=== PATIENT | female | born 1950 | race African-American/Black ===

== ENCOUNTER 2017-06-14 02:20 | Emergency (ER) | payer MEDICARE ==
[2017-06-14 02:50] LABS: #Basophils 0.1 thou/uL (0.0-0.2); #Eosinphils 0.3 thou/uL (0.0-0.7); #Monocytes 1.2 thou/uL (0.11-0.59); #Neutrophils 10.3 thou/uL (1.40-6.50); %Basophils 0.8 % (0.0-1.0); %Eosinophils 1.8 % (0.0-10.0); %Lymphocytes 24.9 % (21.0-51.0); %Monocytes 7.7 % (0.0-10.0); Hematocrit 38.9 % (36.0-47.0); Mean Platelet Volume 9.6 fL (7.4-10.4); Red Blood Cell (RBC) Count 4.46 mill/uL (4.20-5.40); White Blood Cell (WBC) Count 15.9 thou/uL (4.8-10.8)
[2017-06-14 02:53] LABS: Bilirubin Negative (Negative); Blood, Urine Negative (Negative); Glucose, Urine (Dipstick) Negative (Negative); Ketone, Urine Negative (Negative); Nitrite Negative (Negative); Protein, Urine (Dipstick) Negative (Neg-Trace); Urobilinogen 0.2 mg/dL (0.2-1.0)
[2017-06-14 03:04] LABS: ALT (SGPT) 16 U/L (8-55); AST (SGOT) 26 U/L (5-34); Alkaline Phosphatase 96 U/L (40-150); Anion Gap 14 mmol/L (10-20); BUN (Urea Nitrogen) 17 mg/dL (9.8-20.1); Bilirubin, Total 0.4 mg/dL (0.2-1.2); Calc. Creatinine Clearance 0 mL/min (70-130); Calcium 9.1 mg/dL (7.8-10.44); Carbon Dioxide 22 mmol/L (23-31); Chloride 103 mmol/L (98-107); Estimated GFR-MDRD 53; Globulin 3.8 g/dL (2.4-3.5); Protein, Total 7.7 g/dL (6.0-8.3)
[2017-06-14] MEDS ORDERED: cefTRIAXone\\ROCEPHIN 1 GM VIAL ONE (03:06)
== END 2017-06-14 04:39 | disposition home or self-care (01) ==
LOC: ERS 02:20
DX: N12 Tubulo-interstitial nephritis, not specified as acute or chronic (principal); E11.9 Type 2 diabetes mellitus without complications; I10 Essential (primary) hypertension; D86.0 Sarcoidosis of lung; F41.9 Anxiety disorder, unspecified; Z79.84 Long term (current) use of oral hypoglycemic drugs; Z79.82 Long term (current) use of aspirin; Z79.899 Other long term (current) drug therapy
CPT/HCPCS: 36415; 80053; 81003; 85025; 87086; 96361; 96365; 96375; J0696; J2270

== ENCOUNTER 2017-10-30 08:44 | Emergency (ER) | payer MEDICARE ==
[2017-10-30 09:37] LABS: #Eosinphils 0.4 thou/uL (0.0-0.7); #Lymphocytes 3.3 thou/uL (1.20-3.40); #Neutrophils 7.9 thou/uL (1.40-6.50); %Basophils 0.3 % (0.0-1.0); %Eosinophils 2.9 % (0.0-10.0); %Lymphocytes 25.8 % (21.0-51.0); %Monocytes 8.1 % (0.0-10.0); %Neutrophils 62.9 % (42.0-75.0); Hemoglobin 12.9 g/dL (12.0-16.0); Mean Corpuscular HGB CONC 32.4 g/dL (32.0-36.0); Mean Corpuscular Hemoglobin 28.2 pg (27.0-31.0); Mean Corpuscular Volume 86.9 fl (81.0-99.0); Mean Platelet Volume 9.3 fL (7.4-10.4); Platelet Count 234 thou/uL (130-400); RBC Distribution Width 14.4 % (11.5-14.5); Red Blood Cell (RBC) Count 4.59 mill/uL (4.20-5.40); White Blood Cell (WBC) Count 12.6 thou/uL (4.8-10.8)
[2017-10-30 09:45] LABS: ALT (SGPT) 15 U/L (8-55); AST (SGOT) 16 U/L (5-34); Alkaline Phosphatase 110 U/L (40-150); Anion Gap 10 mmol/L (10-20); BUN (Urea Nitrogen) 18 mg/dL (9.8-20.1); Bilirubin, Total 0.4 mg/dL (0.2-1.2); CK (CPK) 70 U/L (29-168); Calc. Creatinine Clearance 0 mL/min (70-130); Calcium 9.4 mg/dL (7.8-10.44); Carbon Dioxide 30 mmol/L (23-31); Chloride 100 mmol/L (98-107); Estimated GFR-MDRD 60; Globulin 3.3 g/dL (2.4-3.5); Glucose 155 mg/dL (80-115); INR-International Normal Ratio 0.9; Lipase 28 U/L (8-78); PTT 32.3 SEC (22.9-36.1); Potassium 3.4 mmol/L (3.5-5.1); Protein, Total 7.3 g/dL (6.0-8.3); Prothrombin Time 12.6 SEC (12.0-14.7); Sodium 137 mmol/L (136-145)
[2017-10-30 09:49] LABS: CKMB 0.8 ng/mL (0-6.6); Troponin I 0.015 ng/mL (< 0.028)
[2017-10-30] MEDS ORDERED: diphenhydrAMINE 25 MG CAP ONE (09:55)
[2017-10-30] MEDS ORDERED: Famotidine 20 MG TAB ONE (09:55)
[2017-10-30] MEDS ORDERED: predniSONE 20 MG TAB ONE (09:55)
--- NOTE | 2017-10-30 10:23 | RAD ---
SINGLE VIEW CHEST: Date: 10/30/17 COMPARISON: 10/04/14. HISTORY: Itching for 2 days and chest pain. FINDINGS: Single view of the chest shows a normal sized cardiomediastinal silhouette. There is no evidence of c onsolidation, mass, or pleural effusion. The bones are unremarkable. IMPRESSION: No evidence of acute cardiopulmonary disease. POS: [facility]
--- NOTE | 2017-11-15 15:12 | EKG ---
Test Reason : Blood Pressure : / mmHG Vent. Rate : 082 BPM Atrial Rate : 082 BPM P-R Int : 126 ms QRS Dur : 082 ms QT Int : 380 ms P-R-T Axes : 020 -18 -04 degrees QTc Int : 443 ms Normal sinus rhythm Normal ECG Confirmed by ESTHER BOYER ([id number]), bark press operator SHWETA ORANTES ([id number]) on 11/15/2017 3:12:15 PM Referred By: ROSALIND Confirmed By:ESTHER BOYER
== END 2017-10-30 11:43 | disposition home or self-care (01) ==
LOC: ERS 08:44
DX: R07.9 Chest pain, unspecified (principal); L29.9 Pruritus, unspecified; D86.9 Sarcoidosis, unspecified; E11.9 Type 2 diabetes mellitus without complications; I10 Essential (primary) hypertension; F41.9 Anxiety disorder, unspecified; Z79.82 Long term (current) use of aspirin; Z87.442 Personal history of urinary calculi; Z79.84 Long term (current) use of oral hypoglycemic drugs; Z79.899 Other long term (current) drug therapy
CPT/HCPCS: 36415; 71045; 80053; 82553; 83690; 84484; 85025; 85610; 85730; 93005; 94760; J7506

== ENCOUNTER 2018-03-02 04:32 | Observation (INO) | payer MEDICARE ==
[2018-03-02 05:05] LABS: #Eosinphils 0.3 thou/uL (0.0-0.7); #Lymphocytes 3.7 thou/uL (1.20-3.40); #Neutrophils 7.9 thou/uL (1.40-6.50); %Basophils 0.2 % (0.0-1.0); %Eosinophils 2.1 % (0.0-10.0); %Lymphocytes 28.6 % (21.0-51.0); %Monocytes 7.8 % (0.0-10.0); %Neutrophils 61.3 % (42.0-75.0); Hemoglobin 12.7 g/dL (12.0-16.0); Mean Corpuscular HGB CONC 33.1 g/dL (32.0-36.0); Mean Corpuscular Hemoglobin 27.5 pg (27.0-31.0); Mean Platelet Volume 9.5 fL (7.4-10.4); Platelet Count 229 thou/uL (130-400); RBC Distribution Width 14.3 % (11.5-14.5); White Blood Cell (WBC) Count 12.9 thou/uL (4.8-10.8)
[2018-03-02 05:30] LABS: ALT (SGPT) 9 U/L (8-55); AST (SGOT) 17 U/L (5-34); Albumin 4.1 g/dL (3.4-4.8); Alkaline Phosphatase 131 U/L (40-150); Anion Gap 15 mmol/L (10-20); BUN (Urea Nitrogen) 29 mg/dL (9.8-20.1); Bilirubin, Total 0.3 mg/dL (0.2-1.2); CK (CPK) 68 U/L (29-168); Calc. Creatinine Clearance 0 mL/min (70-130); Calcium 9.2 mg/dL (7.8-10.44); Carbon Dioxide 25 mmol/L (23-31); Chloride 100 mmol/L (98-107); Estimated GFR-MDRD 39; Globulin 3.6 g/dL (2.4-3.5); Glucose 174 mg/dL (80-115); Lipase 48 U/L (8-78); Potassium 3.5 mmol/L (3.5-5.1); Protein, Total 7.7 g/dL (6.0-8.3); Sodium 136 mmol/L (136-145)
[2018-03-02 05:34] LABS: CKMB 0.7 ng/mL (0-6.6); Troponin I Less than 0.010 ng/mL (< 0.028)
[2018-03-02] MEDS ORDERED: Nitroglycerin 2% Ointment 1 INCH/1 GM Packet ONE (06:03)
[2018-03-02] MEDS ORDERED: HumaLOG 300 UNITS/3 ML VIAL SC PRN ×2 (07:15)
[2018-03-02] MEDS ORDERED: Dextrose 50% Abboject 50 ML SYRINGE SLOW IVP PRN (07:15)
[2018-03-02] MEDS ORDERED: Dextrose 5% in Water 1,000 ML IV PRN (07:15)
[2018-03-02] MEDS ORDERED: Senokot 8.6 MG TAB PO PRN ×2 (07:16)
[2018-03-02] MEDS ORDERED: hydrALAZINE 20 MG/ML VIAL SLOW IVP PRN (07:16)
[2018-03-02] MEDS ORDERED: Nitroglycerin 0.4 MG TAB (25 Tab Bottle) SL PRN (07:16)
[2018-03-02] MEDS ORDERED: Benzonatate 100 MG CAP PO PRN (07:16)
[2018-03-02] MEDS ORDERED: Mag-Al 1200 mg/1200 mg/30 ML UDCUP PO PRN (07:16)
[2018-03-02] MEDS ORDERED: Loratadine 10 MG TAB PO PRN (07:16)
[2018-03-02] MEDS ORDERED: Ondansetron HCl/PF 4 MG/2 ML Vial IVP PRN (07:16)
[2018-03-02] MEDS ORDERED: Calcium Carbonate 500 MG ChewTAB PO PRN (07:16)
[2018-03-02] MEDS ORDERED: Milk Of Magnesia 30 ML UDCUP PO PRN (07:16)
[2018-03-02] MEDS ORDERED: Acetaminophen 325 MG TAB PO PRN (07:16)
[2018-03-02] MEDS ORDERED: Diabetic Tussin 200 MG/10 ML UDCUP PO PRN (07:16)
[2018-03-02] MEDS ORDERED: traMADol HCl 50 MG TAB PO PRN (07:16)
[2018-03-02] MEDS ORDERED: Bisacodyl 5 MG TAB PO PRN ×2 (07:16)
[2018-03-02] MEDS ORDERED: cloNIDine 0.1 MG TAB PO PRN (07:16)
[2018-03-02 08:12] LABS: Cardiac Risk 2.6 (Less than 4.5)
--- NOTE | 2018-03-02 08:13 | RAD ---
SINGLE VIEW OF THE CHEST: COMPARISON: 10/30/17. HISTORY: Chest pain. FINDINGS: Single view of the chest shows a normal sized cardiomediastinal silhouette. There is no evidence of c onsolidation, mass, or pleural effusion. The bones are unremarkable. IMPRESSION: No evidence of acute cardiopulmonary disease. POS: [facility]
[2018-03-02 08:15] VITALS: BMI 34.0
[2018-03-02 08:15] LABS: Troponin I Less than 0.010 ng/mL (< 0.028)
[2018-03-02 08:16] VITALS: TEMP 98.3
[2018-03-02] MEDS ORDERED: Enoxaparin Sodium 40 MG/0.4 ML SYRINGE SC SCH (09:00)
[2018-03-02] MEDS ORDERED: Aspirin 325 mg Enteric Coated Tablet PO SCH (09:00)
[2018-03-02 12:10] VITALS: BP 114/56
[2018-03-02] MEDS ORDERED: Regadenoson 0.4 MG/5 ML SYRINGE ONE ×2 (12:12→13:26)
--- NOTE | 2018-03-02 12:15 | NM ---
NUCLEAR MEDICINE CARDIAC PERFUSION EXAMINATION WITH EJECTION FRACTION: COMPARISON: 04/17/14. HISTORY: A 67-year-old female with chest pain. History of cardiac catheterization. Hypertension and diabetes and family history of coronary artery disease. TECHNIQUE: A stress-only nuclear medicine cardiac perfusion examination was performed. using 30.5 mCi of Techne tium 99m sestamibi and LexiScan. FINDINGS: Tomographic images showed no perfusion defects with stress. Gated images show normal wall motion wit h an ejection fraction of greater than 70%. EDV is 37 mL. LHR is 0.3. IMPRESSION: No perfusion defect seen with stress. POS: [facility]
[2018-03-02 12:32] LABS: Bilirubin Negative (Negative); Blood, Urine Negative (Negative); Clarity CLEAR (Clear); Glucose, Urine (Dipstick) Negative (Negative); Leukocyte Negative (Negative); Nitrite Negative (Negative); Protein, Urine (Dipstick) Negative (Neg-Trace); Specific Gravity, Urine 1.009 (1.002-1.036); Urobilinogen 0.2 mg/dL (0.2-1.0); pH, Urine 5.5 (5.0-9.0)
[2018-03-02 12:35] LABS: Bacteria/HPF None Seen HPF (None Seen); Hyaline Casts/LPF 0-3 HYALINE CAST LPF (0-3 Hyaline); RBC/HPF 0-3 HPF (0-3); Squamous Epithelial 0-3 HPF (0-3); WBC/HPF 0-3 HPF (0-3)
[2018-03-02] MEDS ORDERED: hydrOXYzine 25 MG TAB PO PRN (12:49)
[2018-03-02] MEDS ORDERED: Cyclobenzaprine 10 MG TAB PO PRN (12:49)
[2018-03-02] MEDS ORDERED: Dicyclomine 20 MG TAB PO PRN (12:49)
[2018-03-02] MEDS ORDERED: PROVENTIL INHALER 6.7 G (200 INHALATIONS) INH PRN (13:00)
[2018-03-02] MEDS ORDERED: DULoxetine 60 MG CAP PO SCH ×2 (13:30)
[2018-03-02 13:40] LABS: Troponin I Less than 0.010 ng/mL (< 0.028)
[2018-03-02] MEDS ORDERED: predniSONE 20 MG TAB PO SCH (14:15)
--- NOTE | 2018-03-02 15:11 | SS ---
DATE OF ADMISSION: 03/02/2018 DATE OF DISCHARGE: 03/02/2018 CONDITION AT THE TIME OF DISCHARGE: Stable and improved. ADMISSION AND DISCHARGE DIAGNOSIS: As follows chest pain, noncardiac, likely related to sarcoidosis. SECONDARY DISCHARGE DIAGNOSES: 1. History of sarcoidosis. 2. Diabetes mellitus type 2. 3. Hypertension. 4. Dyslipidemia. 5. Vitamin B12 deficiency. 6. Gastroesophageal reflux disease. 7. Diabetic neuropathy. 8. Hemorrhoid. 9. Anxiety. 10. Depression. 11. Seasonal allergies. 12. Morbid obesity with a BMI of 34. PRIMARY CARE PHYSICIAN: Dr. Adrienne Perez at [facility]. CHIEF COMPLAINT UPON PRESENTATION: Chest pain. HISTORY OF PRESENT ILLNESS: Ms. Galarza is a very pleasant 67-year-old Afro[place] female with pas t medical history of sarcoidosis, who presented to the ER with the complaints of chest pain. The pat shirley has been in and out of the hospital multiple times in the past with the similar complaints. The last time she was here was in 2014 with similar complaints. She has had a normal stress test in and an echocardiogram done as well in 08/2014, which shows EF of 50% to 55%. She presented to the emergency room last night with complaints of chest pain for the 5 days which was intermittent and radiating to her back. She reported that she is not taking her prednisone for the last 3 months. She reported that this is the pain that she always has and thinks that this is her sa rcoidosis. She had some shortness of breath with ambulation, nausea and some cough. She denies any other recent illnesses. Upon presentation to the ER, she was hemodynamically stable with a blood pre ssure of 125/79, saturating 97% on room air. Her initial evaluation included a 12-lead EKG, which di d not have any EKG changes to suggest ACS. The chest x-ray was clear. Cardiac enzymes were obtained and were unremarkable. She was admitted under observation status on telemetry unit to rule out acut e coronary syndrome. PAST MEDICAL HISTORY: 1. Sarcoidosis. 2. Anxiety and depression. 3. Diabetes mellitus. 4. Hypertension. 5. Dyslipidemia. 6. Vitamin B12 deficiency. 7. Gastroesophageal reflux disease. 8. Diabetic neuropathy. 9. Hemorrhoids. PAST SURGICAL HISTORY: 1. Multiple colonoscopies. 2. Colon resection due to obstruction in 1969. 3. Breast reduction. 4. Hysterectomy. 5. Tonsillectomy. 6. Right ankle surgery. 7. Cholecystectomy. SOCIAL HISTORY: She lives at home with family. No history of drug, tobacco or alcohol abuse. FAMILY HISTORY: Significant for diabetes and hypertension and multiple other members also have diabe robert. ALLERGIES: CIPROFLOXACIN, CODEINE, NITROFURANTOIN, BACTRIM. HOME MEDICATIONS: As follows, hydrochlorothiazide 12.5 mg daily, [place] as needed, ProAir as needed, Atarax 25 mg p.o. daily p.r.n., Bentyl 20 mg p.o. t.i.d. p.r.n., Cymbalta 60 mg daily, Flexeril 10 mg t.i.d. p.r.n., colestipol 1 gram p.o. b.i.d., lisinopril 5 mg daily, Januvia 25 mg daily. REVIEW OF SYSTEMS: A 12-point review of systems is done. It is negative except for those mentioned in the history and physical. Constitutional: Weight loss or gain, ability to conduct usual activities. Skin: Rash, itching. Eyes: Double vision, pain. ENT/Mouth: Nose bleeding, neck stiffness, pain, tenderness. Cardiovascular: Palpitations, dyspnea on exertion, orthopnea. Respiratory: Shortness of breath, wheezing, cough, hemoptysis, fever or night sweats. Gastrointestinal: Poor appetite, abdominal pain, heartburn, nausea, vomiting, constipation, or diarrhea. Genitourinary: Urgency, frequency, dysuria, nocturia. Musculoskeletal: Pain, swelling. Neurologic/Psychiatric: Anxiety, depression. Allergy/Immunologic: Skin rash, bleeding tendency. LABORATORY DATA: Upon presentation, CBC shows WBCs of 12.9 without any left shift, otherwise unremar kable. D-dimer less than 0.27. Serum chemistries show creatinine of 1.58 and low sugar of 174, BUN 29. Serial cardiac enzymes were trended and were less than 0.010 x3. CK-MB normal at 0.7. Triglyce rides elevated mildly at 214. Urinalysis unremarkable. Chest x-ray by my review has no evidence to suggest pleural effusion, edema or infiltrate. Twelve lead EKG by my review shows normal sinus rhyth m without any acute ST or T-wave changes. Heart rate 91 per minute. PHYSICAL EXAMINATION: The patient is seen and examined. VITAL SIGNS: Most recent vital signs, temperature 98.3, heart rate 90, respirations 20, saturating 9 7% on room air, blood pressure 114/56. GENERAL: No acute distress, awake, alert, oriented x3. She does appear somewhat uncomfortable becau se of constant pain. HEENT: Mucous membrane is moist and pink. No oropharyngeal exudate or erythema. Head is normocepha lic, atraumatic. Pupils equal, reactive to light and accommodation. Extraocular movement intact. NECK: Supple without any lymphadenopathy, JVD or bruit. LUNGS: Clear to auscultation without any wheezing, rales or rhonchi. CARDIOVASCULAR: Rate and rhythm is regular without any murmur, rubs or gallops. She is tender to pa lpation anteriorly on the entire chest. ABDOMEN: Obese, soft, nontender, nondistended with positive bowel sounds. EXTREMITIES: Free of any cyanosis, clubbing, or edema. NEUROLOGIC: Nonfocal. SKIN: Free of any rashes or bruises. I feel warm and dry to touch. PSYCHIATRIC: Normal affect. IMPRESSION AND PLAN: Chest pain. The patient underwent a nuclear medicine stress test today. This was unremarkable. No fixed or reversible defects seen. EF estimated upwards of 70%. The most likel y her pain is secondary to her sarcoidosis. I had discussion with the patient and she requested that she be treated with steroids, which I think is reasonable. She was given one dose of steroids in [facility] and will be discharged on a Medrol dose tapering back. She will be referred to Pulmonary Medicine as she has not been seen by pega developer in multiple years. At this time, her chest pain i s noncardiac and rather just a chronic pain which is exacerbated for now. Otherwise, she remains hem odynamically stable and will resume her home medications on discharge. She is instructed to follow up with her primary care physician in 1-2 weeks as well. She is also started on Protonix because she gave me the history that she recently had an EGD done and was told that she has some inflammation in her stomach. Her symptoms might also be being contribute d to acid reflux. She was given Protonix 40 mg daily for 1 month trial, and she will follow up with her primary care physician afterwards. At this time, the patient is stable and will be discharged to home.
[2018-03-03] MEDS ORDERED: DULoxetine 60 MG CAP PO SCH (09:00)
[2018-03-03] MEDS ORDERED: Hydrochlorothiazide 25 MG TAB PO SCH (09:00)
[2018-03-03] MEDS ORDERED: Alogliptin 6.25 MG TAB PO SCH (09:00)
[2018-03-03] MEDS ORDERED: Lisinopril 5 MG TAB PO SCH (09:00)
== END 2018-03-02 16:03 | disposition home or self-care (01) ==
LOC: ERS 04:32 → 2SW 07:16
PROVIDERS: ADMIT Hospitalist; ATTEND Hospitalist
DX: R07.89 Other chest pain (principal); E11.40 Type 2 diabetes mellitus with diabetic neuropathy, unspecified; E78.5 Hyperlipidemia, unspecified; K21.9 Gastro-esophageal reflux disease without esophagitis; E53.8 Deficiency of other specified B group vitamins; K64.9 Unspecified hemorrhoids; F41.8 Other specified anxiety disorders; J30.2 Other seasonal allergic rhinitis; I10 Essential (primary) hypertension; E66.01 Morbid (severe) obesity due to excess calories; Z68.34 Body mass index [BMI] 34.0-34.9, adult; Z88.1 Allergy status to other antibiotic agents; Z88.5 Allergy status to narcotic agent; Z88.8 Allergy status to other drugs, medicaments and biological substances
CPT/HCPCS: 71045; 78452; 80053; 80061; 81001; 82550; 82553; 82962; 83690; 83880; 84484 ×2; 85025; 85379; 93005; 93017; 96360; 96372; 99285; A9500; G0378; 36415; 36416; J1650; J2785; J7506

== ENCOUNTER 2018-06-08 06:52 | Emergency (ER) | payer MEDICARE ==
[2018-06-08] MEDS ORDERED: Ibuprofen 800 MG TAB ONE (07:19)
[2018-06-08 08:01] LABS: Bilirubin Negative (Negative); Blood, Urine Negative (Negative); Clarity CLEAR (Clear); Glucose, Urine (Dipstick) Negative (Negative); Leukocyte Negative (Negative); Nitrite Negative (Negative); Protein, Urine (Dipstick) Negative (Neg-Trace); Specific Gravity, Urine 1.008 (1.002-1.036); Urobilinogen 0.2 mg/dL (0.2-1.0); pH, Urine 5.5 (5.0-9.0)
== END 2018-06-08 08:55 | disposition home or self-care (01) ==
LOC: ERS 06:52
DX: S39.012A Strain of muscle, fascia and tendon of lower back, initial encounter (principal); E11.9 Type 2 diabetes mellitus without complications; I10 Essential (primary) hypertension; F41.9 Anxiety disorder, unspecified; X58.XXXA Exposure to other specified factors, initial encounter
CPT/HCPCS: 81003; 99283

== ENCOUNTER 2019-03-23 04:20 | Emergency (ER) | payer MEDICARE ==
[2019-03-23] MEDS ORDERED: Ondansetron ODT 4 MG TAB ONE (04:56)
[2019-03-23] MEDS ORDERED: Ketorolac Tromethamine 30 MG/ML VIAL ONE (04:56)
[2019-03-23 05:20] LABS: #Basophils 0.1 thou/uL (0.0-0.2); #Eosinphils 0.7 thou/uL (0.0-0.7); #Lymphocytes 4.5 thou/uL (1.20-3.40); #Monocytes 1.4 thou/uL (0.11-0.59); #Neutrophils 12.5 thou/uL (1.40-6.50); %Basophils 0.6 % (0.0-1.0); %Eosinophils 3.4 % (0.0-10.0); %Lymphocytes 23.7 % (21.0-51.0); %Monocytes 7.1 % (0.0-10.0); %Neutrophils 65.2 % (42.0-75.0); Hemoglobin 11.8 g/dL (12.0-16.0); Mean Corpuscular HGB CONC 32.9 g/dL (32.0-36.0); Mean Corpuscular Hemoglobin 29.7 pg (27.0-31.0); Mean Corpuscular Volume 90.1 fL (78.0-98.0); Platelet Count 222 thou/uL (130-400); RBC Distribution Width 14.1 % (11.5-14.5); Red Blood Cell (RBC) Count 3.99 mill/uL (4.20-5.40); White Blood Cell (WBC) Count 19.1 thou/uL (4.8-10.8)
[2019-03-23 05:36] LABS: Bacteria/HPF None Seen HPF (None Seen); Bilirubin Negative (Negative); Blood, Urine Negative (Negative); Clarity Clear (Clear); Glucose, Urine (Dipstick) Normal (Negative); Leukocyte 75 Leu/uL (Negative); Nitrite Negative (Negative); Protein, Urine (Dipstick) Negative (Neg-Trace); RBC/HPF 0-3 HPF (0-3); Urobilinogen Normal mg/dL (Less than 2)
[2019-03-23 05:43] LABS: ALT (SGPT) 18 U/L (8-55); AST (SGOT) 13 U/L (5-34); Albumin 3.6 g/dL (3.4-4.8); Alkaline Phosphatase 112 U/L (40-150); Anion Gap 12 mmol/L (10-20); BUN (Urea Nitrogen) 26 mg/dL (9.8-20.1); Bilirubin, Total 0.3 mg/dL (0.2-1.2); Calc. Creatinine Clearance 0 mL/min (70-130); Calcium 9.1 mg/dL (7.8-10.44); Carbon Dioxide 24 mmol/L (23-31); Chloride 107 mmol/L (98-107); Estimated GFR-MDRD 64; Globulin 2.7 g/dL (2.4-3.5); Glucose 105 mg/dL (80-115); Potassium 3.5 mmol/L (3.5-5.1); Protein, Total 6.3 g/dL (6.0-8.3); Sodium 139 mmol/L (136-145)
[2019-03-23] MEDS ORDERED: cefTRIAXone\\ROCEPHIN 2 GM VIAL ONE (07:11)
--- NOTE | 2019-03-23 11:15 | CT ---
CT ABDOMEN AND PELVIS WITHOUT IV CONTRAST: Date: 03/23/19 INDICATION: History of left-sided flank pain. COMPARISON: Prior exam dated 11/30/16. FINDINGS: No renal or ureteral calculus is evident. No hydronephrosis is evident. There is a lobulated contour to the kidneys bilaterally which is stable. There is mild bibasilar atelectasis. Unopacified liver, pancreas, adrenal glands, and spleen appear within normal limits. No free fluid or enlarged lymph nodes are evident. There is a normal appendix in the right lower quadrant. No free fluid or enlarged lymph nodes in the abdomen or pelvis. Reproductive structures are absent. There is scattered degenerative and osteoarthritic change. IMPRESSION: No renal or ureteral calculus. POS: [facility]
== END 2019-03-23 07:53 | disposition home or self-care (01) ==
LOC: ERS 04:20
DX: N12 Tubulo-interstitial nephritis, not specified as acute or chronic (principal); E11.9 Type 2 diabetes mellitus without complications; I10 Essential (primary) hypertension; D86.9 Sarcoidosis, unspecified; F41.9 Anxiety disorder, unspecified
CPT/HCPCS: 74176; 80053; 81003; 81015; 85025; J0696; J1885; Q0162

== ENCOUNTER 2019-03-25 08:11 | Inpatient (IN) | payer MEDICARE ==
[2019-03-25 09:19] LABS: Bacteria/HPF None Seen HPF (None Seen); Bilirubin Negative (Negative); Blood, Urine Negative (Negative); Clarity Clear (Clear); Glucose, Urine (Dipstick) Normal (Negative); Leukocyte 75 Leu/uL (Negative); Nitrite Negative (Negative); Protein, Urine (Dipstick) 10 mg/dL (Neg-Trace); RBC/HPF 0-3 HPF (0-3); Urobilinogen Normal mg/dL (Less than 2); WBC/HPF 0-3 HPF (0-3)
[2019-03-25] MEDS ORDERED: Sodium Chloride 0.9% 100 ML ONE (09:31)
[2019-03-25] MEDS ORDERED: Cefepime 2 GM VIAL ONE (09:31)
[2019-03-25] MEDS ORDERED: MEROPENEM 1 GM/50 ML 1 GM in Premix Bag 1 BAG IVPB SCH (09:45)
[2019-03-25 10:00] LABS: Hemoglobin 12.7 g/dL (12.0-16.0); Mean Corpuscular HGB CONC 33.1 g/dL (32.0-36.0); Mean Corpuscular Hemoglobin 28.9 pg (27.0-31.0); Mean Corpuscular Volume 87.4 fL (78.0-98.0); Mean Platelet Volume 9.6 fL (7.4-10.4); Platelet Count 221 thou/uL (130-400); RBC Distribution Width 15.1 % (11.5-14.5); White Blood Cell (WBC) Count 20.9 thou/uL (4.8-10.8)
[2019-03-25 10:02] LABS: Band 7 % (5-11); Eosinophils 1 % (0-10); Lymphocytes 19 % (21-51); MDiff Complete? YES; Metamyelocyte 1 % (0-0); Neutrophil 72 % (42-75); RBC Morphology Normal
--- NOTE | 2019-03-25 10:43 | RAD ---
CHEST 1 VIEW: INDICATION: Fever. COMPARISON: Prior exam dated 03/02/2018. FINDINGS: There is mild cardiomegaly. Lungs are clear. No acute osseous abnormality is evident. IMPRESSION: No acute cardiopulmonary abnormality. Stable mild cardiomegaly. POS: [facility]
[2019-03-25 11:00] LABS: Albumin 3.6 g/dL (3.4-4.8)
[2019-03-25 11:01] LABS: Chloride 99 mmol/L (98-107); Potassium 3.2 mmol/L (3.5-5.1); Sodium 137 mmol/L (136-145)
[2019-03-25 11:02] LABS: Calcium 9.9 mg/dL (7.8-10.44); Globulin 2.9 g/dL (2.4-3.5); Glucose 120 mg/dL (80-115); Protein, Total 6.5 g/dL (6.0-8.3)
[2019-03-25 11:03] LABS: Carbon Dioxide 27 mmol/L (23-31)
[2019-03-25 11:04] LABS: Anion Gap 14 mmol/L (10-20); Bilirubin, Total 0.6 mg/dL (0.2-1.2)
[2019-03-25 11:05] LABS: Alkaline Phosphatase 114 U/L (40-150)
[2019-03-25 11:06] LABS: BUN (Urea Nitrogen) 20 mg/dL (9.8-20.1); Calc. Creatinine Clearance 0 mL/min (70-130); Estimated GFR-MDRD 51
[2019-03-25 11:07] LABS: AST (SGOT) 21 U/L (5-34)
[2019-03-25 11:08] LABS: ALT (SGPT) 27 U/L (8-55); CK (CPK) 14 U/L (29-168); Lipase 39 U/L (8-78)
[2019-03-25] MEDS ORDERED: Dextrose 5% in Water 1,000 ML IV PRN (12:27)
[2019-03-25] MEDS ORDERED: Dextrose 50% Abboject 50 ML SYRINGE SLOW IVP PRN (12:27)
[2019-03-25] MEDS ORDERED: Calcium Carbonate 500 MG ChewTAB PO PRN (12:28)
[2019-03-25] MEDS ORDERED: Ondansetron PF 4 MG/2 ML Vial IVP PRN (12:28)
[2019-03-25] MEDS ORDERED: HYDROcodone/Acetaminophen 5/325 mg Tablet PO PRN (12:28)
[2019-03-25] MEDS ORDERED: Ondansetron ODT 4 MG TAB PO PRN (12:28)
[2019-03-25] MEDS ORDERED: Acetaminophen 325 MG TAB PO PRN (12:28)
[2019-03-25] MEDS ORDERED: Pantoprazole 40 MG VIAL IVP SCH (12:30)
[2019-03-25] MEDS ORDERED: hydrALAZINE 20 MG/ML VIAL SLOW IVP PRN (12:30)
[2019-03-25 12:36] LABS: CRP (Inflammatory) 15.52 mg/dL (= or < 0.5); Magnesium 1.3 mg/dL (1.6-2.6)
[2019-03-25] MEDS ORDERED: Magnesium Sulfate 4 GM in Sodium Chloride 0.9% 250 ML 250 ML IVPB SCH (12:45)
[2019-03-25] MEDS ORDERED: predniSONE 20 MG TAB PO SCH (12:45)
[2019-03-25 12:53] VITALS: BMI 37.0
--- NOTE | 2019-03-25 13:20 | HP ---
PRIMARY CARE PHYSICIAN: Dr. Perez at [facility]. PRIMARY BAR MACHINE OPERATOR PRODUCTION: Dr. Manning. PRIMARY LIGHT INDUSTRIAL SUPERVISOR: Dr. Thomas. CHIEF CONCERN: Left-sided abdominal pain. HISTORY OF PRESENT ILLNESS: The patient is a 68-year-old female with diabetes mellitus type 2, sarcoidosis, hypertension, dyslipidemia, and obesity, presented to the emergency room with above complaints. Three days ago, patient was seen in the emergency room for left-sided abdominal pain. Urinalysis showed 4 to 6 wbc's without any bacteria. She had 75 leukocyte esterase. She was diagnosed with UTI. She was discharged home on ciprofloxacin. CT scan of the abdomen and pelvis without contrast was negative for obstructive uropathy. There was lobulated contour to the kidneys bilaterally. No urine cultures were sent. Please note that last week, the patient was seen at [facility] for similar abdominal pain that was attributed to GERD. She advised to continue PPIs and was referred to the GI Clinic. Last month, she had a CT scan of the abdomen and pelvis with contrast that was negative for acute findings. It showed findings consistent with pulmonary sarcoidosis. She also had an upper GI small bowel followthrough last month by Dr. Manning that showed prominent gastroesophageal reflux with esophageal dysmotility. The stomach and the small bowel were normal. She had a colonoscopy this year that showed 1 to 2+ internal hemorrhoids without any other findings. She had EGD in 2016 that showed gastritis with hiatal hernia and Schatzki ring without any peptic ulcer. The abdominal pain is localized over the left side of the abdomen. It is reproducible with superficial palpation per patient report. This pain has been going on for a month or so and is getting worse. She also has burning in the urine which has got worse recently. She also complains of frequency. She denies any fever, however, had occasional chills. She denies recent injury to her back or neck. She is compliant with all of her medications. The pain is moderate in intensity, sharp, constant without any aggravating or relieving factor. In the emergency room, her initial vital signs showed temperature 98.1, respirations of 18, pulse rate of 115 with a blood pressure of 126/85 with O2 saturation of 94% on room air. Her WBC count was 20.9 with 19% lymphocytes, 72% neutrophils. D-dimer was negative. Creatinine was 1.26 from 1.03 two days ago. Urinalysis showed 75 leukocyte esterase without wbc's or bacteria. Urine cultures and blood cultures were sent. She received a dose of meropenem and cefepime along with IV fluids in the emergency room. Patient had a normal bowel movement today. She denies any diarrhea, heartburn, or vomiting. PAST MEDICAL HISTORY: 1. Pulmonary sarcoidosis. 2. GERD. 3. Anxiety. 4. Chronic kidney disease. 5. Diabetes mellitus type 2 with diabetic neuropathy. 6. Fibromyalgia. 7. Hyperlipidemia. 8. Hypertension. 9. History of inflammatory bowel syndrome. 10. History of renal calculi. 11. Seasonal allergies. 12. Allergic rhinitis. 13. Chronic anemia. 14. Hemorrhoids. PAST SURGICAL HISTORY: 1. EGD. 2. Colonoscopy. 3. Hysterectomy. 4. Ankle arthroscopy. 5. Subtotal colectomy for small bowel obstruction. 6. Tonsillectomy. 7. Breast reduction. ALLERGIES: PATIENT IS ALLERGIC TO CIPROFLOXACIN THAT CAUSES HIVES; CODEINE, HIVES; MACROBID, HIVES; BACTRIM ALLERGY. CURRENT HOME MEDICATIONS: The patient is unable to recall any of her home medications. Her daughter will bring all of her medications today. SOCIAL HISTORY: The patient currently lives at home with her family. She is full code. She is . She is a former smoker, quit in 2002. Denies current use of alcohol. FAMILY HISTORY: Positive for mother with diabetes and hypertension. REVIEW OF SYSTEMS: All other review of systems was reviewed and were found negative. PHYSICAL EXAMINATION: VITAL SIGNS: As discussed above. GENERAL: A 68-year-old female in mild distress due to abdominal discomfort. HEENT: Head: Atraumatic and normocephalic. Sclerae anicteric. Moist mucous membranes. No oral lesion. NECK: Supple. No JVD appreciated. No carotid bruit. LUNGS: Clear to auscultation bilaterally with scattered rhonchi. No significant rales. HEART: S1, S2 present. Regular rate and rhythm. No rubs or gallops. ABDOMEN: Soft. There is superficial tenderness over the entire left side of the abdomen and left flank. Bowel sounds were present. No guarding or rigidity. EXTREMITIES: No edema or calf tenderness. NEUROLOGY: Grossly nonfocal. Moves all 4 extremities. PSYCHIATRY: Alert, awake, oriented x3. SKIN: Warm and dry. LYMPH NODES: No palpable lymph nodes in the neck. PERIPHERAL VASCULAR: Radial pulses palpable bilaterally. MUSCULOSKELETAL: No joint swelling or tenderness. LAB FINDINGS: WBC 20.9 with 19% lymphocytes, 72% neutrophil. D-dimer was negative. Chemistry showed sodium 137, potassium 3.2, chloride 99, bicarb 27, BUN 20, creatinine 1.26. Lactic acid 1.7. Troponin was negative. BNP was 34.1. IMAGING STUDIES: Chest x-ray by my review was negative for infiltrate. Recent CT scan of the abdomen by my review was negative for obstructive uropathy. EKG by my review showed sinus rhythm with nonspecific ST-T wave changes. IMPRESSION: 1. Systemic inflammatory response syndrome of unclear etiology. 2. Suspected urinary tract infection. 3. Left lateral abdominal pain of unclear etiology. The patient was recently diagnosed with esophageal dysmotility with prominent gastroesophageal reflux disease on upper GI series (on 02/19/2019). Please note, stool was negative for Helicobacter pylori antigen last week. 4. Acute kidney injury on chronic kidney disease, stage 2. 5. Diabetes mellitus type 2 with diabetic neuropathy. 6. Fibromyalgia. 7. Hypertension. 8. Pulmonary sarcoidosis, on chronic steroids. 9. Dyslipidemia. 10. Vitamin B12 deficiency. 11. Hemorrhoids. 12. Anxiety and depression. 13. Seasonal allergies. 14. Hypokalemia. 15. Multiple antibiotic allergy. PLAN: The patient will be monitored on the telemetry unit. She became transiently hypotensive in the emergency room with blood pressure of 81/57. This improved with 2 L IV fluids. We will continue empiric antibiotics for UTI. Blood and urine cultures have been sent. We will consult Gastroenterology and Infectious Disease. We will start her on clear liquid diet. We will confirm home medications and start accordingly. Resume prednisone. IV PPIs. Insulin sliding scale. PRN antihypertensives until home medications are verified. Plan of care was discussed with the patient in detail, she stated understanding. Job ID: [id number]
[2019-03-25] MEDS: cefTRIAXone\\ROCEPHIN 1 GM in Sodium Chloride 0.9% 100 ML IVPB SCH (14:09)
[2019-03-25] MEDS: NS 0.9% w/ 20 MEQ KCL 1,000 ML/1,000 ML BAG IV SCH (14:40)
[2019-03-25] MEDS ORDERED: Hyoscyamine Sulfate SL 0.125 mg Tablet SL PRN (17:08)
[2019-03-25] MEDS ORDERED: Benzonatate 100 MG CAP PO PRN (17:08)
[2019-03-25] MEDS ORDERED: Dicyclomine 20 MG TAB PO PRN (17:08)
[2019-03-25] MEDS ORDERED: Cyclobenzaprine 10 MG TAB PO PRN (17:08)
[2019-03-25] MEDS ORDERED: PROVENTIL INHALER 6.7 G (200 INHALATIONS) INH PRN (18:30)
[2019-03-25] MEDS: Mometasone Furoate 120 PUFF 220 MCG INH SCH (18:41)
[2019-03-25] MEDS: HYDROcodone/Acetaminophen 10/325 mg Tablet PO PRN (19:59)
[2019-03-25] MEDS: Pregabalin 50 MG CAP PO SCH (20:00)
[2019-03-25] MEDS: Pantoprazole 40 MG VIAL IVP SCH (20:00)
[2019-03-25] MEDS: Amlodipine 5 MG TAB PO SCH (20:01)
[2019-03-25] MEDS: Senokot S 8.6-50 MG TAB PO SCH (20:01)
[2019-03-25] MEDS ORDERED: Methocarbamol 500 MG TAB PO PRN (21:00)
[2019-03-25] MEDS ORDERED: Cholestyramine/Aspartame 4 gm Packet PO SCH (21:00)
[2019-03-25] MEDS: Azelastine 137 MCG/Spray 30 ML NS SCH (21:21)
[2019-03-25] MEDS: Insulin Regular 300 UNITS/3 ML VIAL SC PRN (21:21)
[2019-03-26] MEDS: NS 0.9% w/ 20 MEQ KCL 1,000 ML/1,000 ML BAG IV SCH ×3 (02:23→21:38)
--- NOTE | 2019-03-26 04:37 | CON ---
DATE OF CONSULTATION: 03/25/2019 CHIEF COMPLAINT: Abdominal pain. HISTORY OF PRESENT ILLNESS: Ms. Galarza is a 68-year-old woman with a history of irritable bowel syndrome with chronic left lower quadrant pain. It has been evaluated for many years for left lower quadrant abdominal pain. She actually now complains of left lower quadrant and left upper quadrant, epigastric, and periumbilical abdominal pain that is worsened over the last month. Her pain is a constant pressure-type pain from morning to night. Sometimes, it improves with bowel movement. It is not affected by eating. She does have lately of few small incomplete stools per day, and due to the frequency of the stools, she has taken cholestyramine to bind these bile acids which helps reduce the frequency of the stools. However, she has not had any actual running diarrhea recently. She is followed with Dr. Camilo in the more distant past and has undergone upper and lower endoscopies and numerous CT scans over the years. More recently, over the last few years, she has followed with Dr. Manning. She has had a colonoscopy in the last year, which she reports was normal. She had an upper endoscopy with dilation a couple years ago per the patient report. She had a CT scan of the abdomen and pelvis without contrast on presentation to the ER here and then a CT with contrast at [facility] a month ago. On presentation in the hospital, she was found to have elevated white blood cell count and C-reactive protein and shortness of breath and underlying chronic immune suppression with prednisone for sarcoidosis. She was admitted with systemic inflammatory response syndrome and has been started on antibiotics. GI was consulted to follow up on her abdominal pain is the source for her systemic inflammatory response syndrome. PAST MEDICAL HISTORY: Sarcoidosis, diverticulosis, gastroesophageal reflux disease, chronic kidney disease, anxiety, diabetes mellitus, fibromyalgia, hyperlipidemia, hypertension, kidney stones. PAST SURGICAL HISTORY: She had a partial colon resection for obstruction many years ago. She had another abdominal surgery for lysis of adhesions years ago. She has had hysterectomy, ankle surgery, tonsillectomy, breast reduction, multiple endoscopies. FAMILY HISTORY: Negative for GI malignancies. SOCIAL HISTORY: She quit smoking in 2002. No alcohol or drugs. ALLERGIES: CIPROFLOXACIN, CODEINE, NITROFURANTOIN, BACTRIM. REVIEW OF SYSTEMS: Negative x10 systems reviewed except as stated in history of present illness. PHYSICAL EXAMINATION: VITAL SIGNS: Temperature 97.6, pulse 109, blood pressure 144/65, oxygen saturation 92% on room air. GENERAL: She is in no acute distress. Alert and oriented x3. HEENT: Eyes have no scleral icterus. Oropharynx is clear without lesions. NECK: No cervical or supraclavicular lymphadenopathy. LUNGS: Scattered wheezes bilaterally. HEART: Regular rate and rhythm without murmur. ABDOMEN: Soft. She has mild tenderness in the left upper quadrant and more significant tenderness in the left lower quadrant without guarding. Her bowel sounds are active. No tenderness in the right lower quadrant. EXTREMITIES: No lower extremity edema. IMPRESSION: Irritable bowel syndrome. She has had numerous CT scans of the abdomen and pelvis and upper and lower endoscopies over the years without specific source identified for left lower abdominal pain. She does get improvement with bowel movement. She has multiple small incomplete stools per day, and on my review of her CT scan on 03/23/2019, she has a significant amount of stool over the right colon up towards the transverse, while the left colon is decompressed. She might actually have a significant component of constipation with the small incomplete frequent stools and significant stool retention noted by CT. She has not been treated with a trial of laxative regimen in the past. For now, I will start her on MiraLAX 17 g daily and hold the cholestyramine for now. We will try this daily for a month, and if it helps, then great, and if not or makes things worse, will go ahead and change the plan. Job ID: [id number]
[2019-03-26 04:47] LABS: #Eosinphils 0.1 thou/uL (0.0-0.7); #Lymphocytes 1.4 thou/uL (1.20-3.40); #Monocytes 0.8 thou/uL (0.11-0.59); #Neutrophils 11.9 thou/uL (1.40-6.50); %Basophils 0.2 % (0.0-1.0); %Eosinophils 0.9 % (0.0-10.0); %Lymphocytes 9.7 % (21.0-51.0); %Monocytes 5.7 % (0.0-10.0); %Neutrophils 83.5 % (42.0-75.0); Hemoglobin 11.6 g/dL (12.0-16.0); Mean Corpuscular HGB CONC 30.9 g/dL (32.0-36.0); Mean Corpuscular Hemoglobin 27.7 pg (27.0-31.0); Mean Corpuscular Volume 89.4 fL (78.0-98.0); Platelet Count 199 thou/uL (130-400); RBC Distribution Width 15.3 % (11.5-14.5); Red Blood Cell (RBC) Count 4.18 mill/uL (4.20-5.40); White Blood Cell (WBC) Count 14.3 thou/uL (4.8-10.8)
[2019-03-26 05:09] LABS: ALT (SGPT) 23 U/L (8-55); AST (SGOT) 16 U/L (5-34); Albumin 3.2 g/dL (3.4-4.8); Alkaline Phosphatase 118 U/L (40-150); Anion Gap 13 mmol/L (10-20); BUN (Urea Nitrogen) 13 mg/dL (9.8-20.1); Bilirubin, Total 0.3 mg/dL (0.2-1.2); Calc. Creatinine Clearance 83 mL/min (70-130); Calcium 8.9 mg/dL (7.8-10.44); Carbon Dioxide 25 mmol/L (23-31); Chloride 104 mmol/L (98-107); Estimated GFR-MDRD 69; Globulin 2.8 g/dL (2.4-3.5); Glucose 236 mg/dL (80-115); Potassium 4.5 mmol/L (3.5-5.1); Sodium 137 mmol/L (136-145)
[2019-03-26] MEDS ORDERED: Fluticasone Propionate Nasal Spray 16 gm Bottle NASAL PRN (09:00)
[2019-03-26] MEDS: Pregabalin 50 MG CAP PO SCH ×3 (09:55→20:37)
[2019-03-26] MEDS: Enoxaparin Sodium 40 MG/0.4 ML SYRINGE SC SCH (09:55)
[2019-03-26] MEDS: Pantoprazole 40 MG VIAL IVP SCH ×2 (09:55→20:36)
[2019-03-26] MEDS: DULoxetine 60 MG CAP PO SCH (09:57)
[2019-03-26] MEDS: HYDROcodone/Acetaminophen 10/325 mg Tablet PO PRN ×2 (09:59→17:06)
[2019-03-26] MEDS: Amlodipine 5 MG TAB PO SCH ×2 (10:00→20:36)
[2019-03-26] MEDS: Glimepiride 2 MG TAB PO SCH (10:00)
[2019-03-26] MEDS: Alogliptin 6.25 MG TAB PO SCH (10:00)
[2019-03-26] MEDS: predniSONE 20 MG TAB PO SCH (10:01)
[2019-03-26] MEDS: Azelastine 137 MCG/Spray 30 ML NS SCH ×2 (10:01→20:36)
[2019-03-26] MEDS: Polyethylene Glycol 3350 17 GM Packet PO SCH (10:01)
[2019-03-26] MEDS: Senokot S 8.6-50 MG TAB PO SCH ×2 (10:01→20:36)
[2019-03-26] MEDS: Insulin Regular 300 UNITS/3 ML VIAL SC PRN ×3 (11:56→20:40)
[2019-03-26] MEDS: cefTRIAXone\\ROCEPHIN 1 GM in Sodium Chloride 0.9% 100 ML IVPB SCH (11:57)
--- NOTE | 2019-03-26 12:09 | CT ---
CT ABDOMEN AND PELVIS WITH IV AND ORAL CONTRAST: HISTORY: Lower abdominal pain. COMPARISON: 10/25/2013 FINDINGS: There are tiny bilateral pleural effusions with adjacent atelectatic changes. Mild infiltrates are s een in the visualized portions of the left upper lobe. No free air, free fluid, or lymphadenopathy is seen in the abdomen or pelvis. There are postop mullen es of cholecystectomy, appendectomy, and colonic resection. The liver, spleen, pancreas, and adrenal glands appear normal. There are small cysts on the kidneys. A small gastric diverticulum is again seen posteriorly. The small bowel loops are not abnormally dil ated. There is no evidence of aneurysmal dilatation of the abdominal aorta. There are degenerative changes in the spine. IMPRESSION: 1. Tiny pleural effusions and mild infiltrate in the left upper lobe. 2. Small gastric diverticulum. 3. Small renal cysts. POS: [facility]
--- NOTE | 2019-03-26 12:28 | CON ---
DATE OF CONSULTATION: 03/25/2019 REASON FOR CONSULTATION: Abdominal pain. HISTORY OF PRESENT ILLNESS: A 68-year-old patient with history of type 2 diabetes, sarcoidosis, and hypertension. It appears that her diabetes resulted after she started to take corticosteroids for the sarcoidosis. She does not take her prednisone all the time, given intermittently. She has had chronic pain in the abdominal area, which she describes as in the upper left and flank, kind of wrapping around towards the back for the past few weeks. She has had quite extensive evaluation thus for including abdominal CTs, which did not show any intraabdominal abnormality. She also had an upper GI small-bowel follow-through at [facility], which showed prominent gastroesophageal reflux with esophageal dysmotility and colonoscopy with hemorrhoids, but no other significant findings. She had Schatzki ring identified on EGD in 2016. The eventual evaluation showed essentially normal vital signs except for mild tachycardia and O2 saturation was 94% on room air. There is elevation of the white cell count of 20.9, creatinine was a bit up to 1.26. Urinalysis did not have any wbc's identified. She was given broad-spectrum antimicrobial coverage. Currently, she is awake, pleasant, appears in no distress, still with what she describes as the abdominal symptoms as above. No headaches. No visual symptoms. Some cough. No chest pain. No sputum production. She does refer to back pain kind of wrapping around toward the abdominal area. No genitourinary symptoms. No other joint symptoms. PAST MEDICAL HISTORY: Pulmonary sarcoidosis; GERD; gastritis; renal insufficiency, chronic stage 2 to 3; diabetes mellitus type 2 with neuropathy; fibromyalgia; hypertension. There is a history of inflammatory bowel disease, but I do not see it documented, nephrolithiasis, rhinitis, hemorrhoids. PAST SURGICAL HISTORY: Colonoscopy, hysterectomy, ankle arthroscopy, subtotal colectomy for small-bowel obstruction, breast reduction. ALLERGIES: CIPROFLOXACIN WITH HIVES, CODEINE, MACROBID, BACTRIM. SOCIAL HISTORY: Former smoker, quit 2 years ago. Lives in the area. No alcoholic beverage use. FAMILY HISTORY: Type 2 diabetes, hypertension. CURRENT MEDICATIONS: 1. Tylenol. 2. Newberry. 3. Proventil. 4. DuoNeb. 5. Alogliptin. 6. Norvasc. 7. Azelastine. 8. Ceftriaxone. 9. Flexeril. 10. Dextrose. 11. Cymbalta. 12. Flonase. 13. Glucagon. 14. Apresoline. 15. Insulin. 16. Robaxin. 17. Asmanex. 18. Zofran. 19. Myolax. 20. Prednisone 20 mg. 21. Lyrica. PHYSICAL EXAMINATION: VITAL SIGNS: Temperature max 98.4, blood pressure 120/59, pulse 91, respirations 20, O2 saturation 100%. GENERAL: There is no distress. SKIN: No areas of skin breakdown. Peripheral IV access. The patient is voiding in the toilet. No lymphadenopathy. HEENT: Ocular movements conjugate. Sclerae are white. Alert and oriented. Oral cavity was not remarkable. NECK: Supple. No jugular vein distention. LUNGS: Symmetric air entry. No obvious crackles or wheezing. ABDOMEN: There are some tenderness in the abdominal area of the left upper quadrant. No distention of the abdomen. No ascites. No organomegaly. No bladder distention. EXTREMITIES: The patient is able to move extremities equally. Cognitive function appears to be intact. LABORATORY DATA: White cell count 20.9, now it is 14.3; hemoglobin 11.6; platelets 199 with 82% neutrophils. D-dimer 0.33. Chemistry with glucose 236. Liver profile normal. Albumin 3.2. Lipase was 39. CRP 15.52. Urinalysis fairly normal. Microbiology with pending specimens. Urine culture negative. IMAGING STUDIES: Previous imaging; last abdomen and pelvis CT just a few days ago, no significant findings. This was a stone protocol study. There was a previous CT in November 2016 with no UTI or calcification. This was a noncontrast study as well. The patient had a chest x-ray with no abnormalities noted. ASSESSMENT: 1. Type 2 diabetes. 2. Sarcoidosis in the pulmonary location. 3. Chronic left upper quadrant, left flank pain, which seems to wrap around towards the back. 4. Leukocytosis. DISCUSSION: The differential diagnosis includes an intraabdominal inflammatory process that was not identified since the contrast was not given, this could be in the small bowel or kidneys, or radiculopathic pain radiating from the back, for example, associated with osteoporosis and compression fractures or an inflammatory process in the thoracic spine. We will pursue workup with an MRI of the thoracic spine with contrast and CT of abdomen and pelvis with contrast. Job ID: [id number] [facility]
--- NOTE | 2019-03-26 14:33 | MRI ---
MRI THORACIC SPINE WITH AND WITHOUT CONTRAST: 03/26/19 HISTORY: Radicular pain. COMPARISON: None. FINDINGS: The vertebral body heights and disc spaces are maintained. Intervertebral hemangioma at T6 blunting t he superior end plate. Cord signal is normal. There is no cord signal abnormality. There is no significant neural foraminal or spinal canal narrowing throughout the thoracic spine. No abnormal enhancement. No evidence for discitis or osteomyelitis. No marrow edema. No compression deformity. No Schmorl's node formation. Posterior elements are intact . IMPRESSION: 1. Normal examination of the thoracic spine. No neural foraminal or spinal canal narrowing. 2. No evidence for discitis or osteomyelitis. 3. Of note, the lower thoracic spine is poorly evaluated due to motion and limitations of the fi eld of view. 4. Possible small posterior disc osteophyte complex at T11-T12 with minimal effacement of the ve ntral CSF space. Lumbar spine MRI may be helpful if clinically warranted. POS: HOME
[2019-03-26] MEDS ORDERED: Ondansetron PF 4 MG/2 ML Vial IVP PRN (16:56)
[2019-03-26] MEDS ORDERED: Ondansetron ODT 4 MG TAB PO PRN (16:56)
[2019-03-26] MEDS: Mometasone Furoate 120 PUFF 220 MCG INH SCH (18:54)
[2019-03-26] MEDS ORDERED: Insulin Regular 300 UNITS/3 ML VIAL SC PRN (20:41)
--- NOTE | 2019-03-26 21:01 | PRG ---
DATE OF SERVICE: 03/26/2019 SUBJECTIVE: Ms. Galarza has continued left lower quadrant chronic abdominal pain. No nausea or vomiting. No fever. OBJECTIVE: VITAL SIGNS: Blood pressure 132/74. GENERAL: She is in no acute distress. Alert and oriented x3. HEENT: Eyes have no scleral icterus. LUNGS: Bilateral scattered wheezes. HEART: Tachycardic. S1 and S2. ABDOMEN: Soft, tender in the left lower quadrant without guarding. Bowel sounds are present. EXTREMITIES: Trace lower extremity edema. LABORATORY DATA: Her white blood cell count is improved from 20.9 down to 14.3, hemoglobin is 11.6, platelets 199. Creatinine 0.97. IMPRESSION: 1. Chronic left lower quadrant pain secondary to irritable bowel syndrome. She has been started on MiraLAX daily as there was some retained stool in the right colon based on the noncontrast CT. Contrast enhanced CT was repeated today and showed no acute new pathology in the abdomen. She has had extensive workup over many years multiple times for the chronic left lower quadrant pain including multiple endoscopies and numerous CT scans. 2. She was admitted with systemic inflammatory response syndrome. She was being evaluated for source for this. She has pulmonary sarcoidosis, on immunosuppression. She is being assessed for urinary tract infection, however, this does not appear to be the primary source for her symptoms now. RECOMMENDATIONS: 1. MiraLAX 17 g daily. 2. She will continue antibiotics per the primary service and Infectious Disease. She can follow up in GI Clinic for further management of the chronic abdominal pain. She has been following with Dr. Manning most recently for this. I will sign off for now. Please call if GI can be of assistance. Job ID: [id number]
--- NOTE | 2019-03-26 21:04 | PRG ---
DATE OF SERVICE: 03/26/2019 SUBJECTIVE: The patient is a 68-year-old female with diabetes mellitus type 2, sarcoidosis, hypertension, and esophageal dysmotility, presented to the emergency room with left-sided abdominal discomfort. She also had systemic inflammatory response syndrome from suspected urinary tract infection. D-dimer was negative. WBC was 21,000 on admission that improved to 14,000. She continues to have abdominal discomfort and bloating. No fever or chills reported. REVIEW OF SYSTEMS: All other review of systems was reviewed and was found negative. CURRENT MEDICATIONS: Reviewed. The patient is on ceftriaxone, IV fluids, amlodipine with prednisone. DIAGNOSTIC STUDIES: Telemetry monitoring by my review showed sinus tachycardia. OBJECTIVE: GENERAL: A 68-year-old female, in mild distress due to abdominal discomfort. LUNGS: Clear to auscultation bilaterally. No wheezing, rales, or rhonchi. HEART: S1 and S2 present. Regular rate and rhythm. No rubs or gallops. Tachycardic. ABDOMEN: Soft. There is tenderness to superficial palpation over her left upper quadrant and left lower quadrant. No guarding or rigidity. Bowel sounds are present. EXTREMITIES: No edema or calf tenderness. NEUROLOGIC: Grossly nonfocal. PSYCHIATRIC: Alert, awake, and oriented x3. Normal affect. LABORATORY FINDINGS: WBC 14.3 with 83% neutrophils. D-dimer was negative. Sodium 137, potassium 4.5, chloride 104, bicarb 25, BUN 13, creatinine 0.97. Blood culture negative. Urine culture showed [id number] scan of the abdomen and pelvis by my review was negative for acute findings. Thoracic spine MRI was negative for diskitis or osteomyelitis. It showed possible small posterior disk osteophyte complex at T11-T12. IMPRESSION: 1. Systemic inflammatory response syndrome, suspected secondary to urinary tract infection. 2. Left lateral abdominal pain of unclear etiology. Suspected secondary to esophageal dysmotility versus irritable bowel syndrome. 3. Acute kidney injury on chronic kidney disease stage 2. 4. Hypokalemia, corrected. 5. Diabetes mellitus type 2 with diabetic neuropathy. 6. Fibromyalgia. 7. Hypertension. 8. Pulmonary sarcoidosis, on chronic steroids. 9. Dyslipidemia. 10. Hemorrhoids. 11. Anxiety. 12. Depression, mild, stable. 13. Seasonal allergies. 14. Multiple antibiotic allergy. PLAN: The patient is currently on telemetry due to persistent tachycardia. We will change amlodipine to oral Cardizem. We will reduce IV fluids. Continue diabetic diet. Cholestyramine has been discontinued. She has been started on MiraLAX. PPIs will be changed to p.o. Continue other home medications including glimepiride. Continue sliding scale. Plan was discussed with the patient in detail. She stated understanding. Job ID: [id number]
[2019-03-27 05:00] LABS: #Eosinphils 0.2 thou/uL (0.0-0.7); #Lymphocytes 2.3 thou/uL (1.20-3.40); #Monocytes 1.1 thou/uL (0.11-0.59); #Neutrophils 8.9 thou/uL (1.40-6.50); %Eosinophils 1.3 % (0.0-10.0); %Lymphocytes 18.3 % (21.0-51.0); %Monocytes 9.1 % (0.0-10.0); %Neutrophils 71.2 % (42.0-75.0); Mean Corpuscular HGB CONC 30.8 g/dL (32.0-36.0); Mean Corpuscular Hemoglobin 27.6 pg (27.0-31.0); Mean Corpuscular Volume 89.7 fL (78.0-98.0); Mean Platelet Volume 9.8 fL (7.4-10.4); Platelet Count 214 thou/uL (130-400); Red Blood Cell (RBC) Count 3.98 mill/uL (4.20-5.40); White Blood Cell (WBC) Count 12.4 thou/uL (4.8-10.8)
[2019-03-27 05:15] LABS: Anion Gap 11 mmol/L (10-20); BUN (Urea Nitrogen) 10 mg/dL (9.8-20.1); Calc. Creatinine Clearance 0 mL/min (70-130); Carbon Dioxide 26 mmol/L (23-31); Chloride 103 mmol/L (98-107); Estimated GFR-MDRD 86; Glucose 184 mg/dL (80-115); Potassium 4.2 mmol/L (3.5-5.1); Sodium 136 mmol/L (136-145)
[2019-03-27] MEDS: NS 0.9% w/ 20 MEQ KCL 1,000 ML/1,000 ML BAG IV SCH (05:23)
[2019-03-27] MEDS: Pregabalin 50 MG CAP PO SCH ×3 (08:07→20:13)
[2019-03-27] MEDS: Glimepiride 2 MG TAB PO SCH (08:07)
[2019-03-27] MEDS: predniSONE 20 MG TAB PO SCH (08:07)
[2019-03-27] MEDS: Azelastine 137 MCG/Spray 30 ML NS SCH ×2 (09:55→20:14)
[2019-03-27] MEDS: Enoxaparin Sodium 40 MG/0.4 ML SYRINGE SC SCH (09:55)
[2019-03-27] MEDS: Alogliptin 6.25 MG TAB PO SCH (09:56)
[2019-03-27] MEDS: Senokot S 8.6-50 MG TAB PO SCH ×2 (09:56→20:14)
[2019-03-27] MEDS: DULoxetine 60 MG CAP PO SCH (09:56)
[2019-03-27] MEDS: Polyethylene Glycol 3350 17 GM Packet PO SCH (10:02)
--- NOTE | 2019-03-27 14:23 | PQF ---
CLINICAL DOCUMENTATION IMPROVEMENT CLARIFICATION FORM: ICD-10 Updated PLEASE DO AN ADDENDUM TO THE PROGRESS NOTE WITH ANY DOCUMENTATION UPDATES OR ADDITIONS AND CARRY THROUGH TO DC SUMMARY. THANK YOU. DATE: 03/27/19 ATTN: DR. MEZA Please exercise your independent, professional judgment in responding to the clarification form. Clinical indicators are provided on the bottom of this form for your review Please check appropriate box(es): [ ] Sepsis due to: (Pna, UTI, gangrenous gall bladder, etc.) Due to: [ ] Device (please specify) [ ] Implant [ ] Graft [ ] Infusion [ x ] SIRS due to non-infectious process (please specify etiology) [ ] with organ dysfunction [ ] without organ dysfunction [ ] Severe sepsis with acute organ dysfunction of: (Examples: respiratory failure, encephalopathy, acute kidney failure, other) [ ] Septic Shock [ ] Localized infection without sepsis [ ] Other diagnosis [ ] Unable to determine In addition, please specify: Present on Admission (POA): [ x ] Yes [ ] No [ ] Unable to determine For continuity of documentation, please document condition throughout progress notes and discharge summary. Thank You. CLINICAL INDICATORS - SIGNS / SYMPTOMS / LABS ER NOTE: "SEPSIS" BP 81/55 RR 28 PULSE 90'S-123 WBC 20.9 CRP 15.52 RISKS: SUSPECTED UTI POSSIBLE IBS TREATMENT: IV FLUIDS (ER-PRESENT) IV MEROPENEM (ER) IV CEFEPIME (ER) IV ROCEPHIN (03/25-PRESENT) BLOOD AND URINE CULTURES (This form is maintained as a part of the permanent medical record) 2014 [employer]. All Rights Reserved DILCIA [email or web address] Office: [phone] [facility] SYSTEM[facility]
[2019-03-27] MEDS: cefTRIAXone\\ROCEPHIN 1 GM in Sodium Chloride 0.9% 100 ML IVPB SCH (15:10)
[2019-03-27] MEDS: Mometasone Furoate 120 PUFF 220 MCG INH SCH (19:30)
--- NOTE | 2019-03-27 22:54 | PDOC.PN ---
- Subjective Encounter Start Date: 03/27/19 Encounter Start Time: 17:30 Patient seen and examined for Abd pain/?Sepsis. Abd pain improving. No N/V. Had BM. No new complaints. No overnight events - Objective Resuscitation Status - Order Detail: 03/25/19 12:28 Resuscitation Status Routine Resuscitation Status: FULL: Full Resuscitation MAR Reviewed: Yes Vital Signs & Weight: Vital Signs (12 hours) Temp Pulse Resp BP Pulse Ox 03/27/19 20:00 98.7 F 107 H 18 163/82 H 93 L 03/27/19 19:32 96 03/27/19 19:29 96 03/27/19 16:10 98.1 F 115 H 18 137/81 03/27/19 14:30 107 H 19 03/27/19 12:15 98.0 F 111 H 18 158/90 H 92 L Weight Weight 217 lb 1 oz I&O: 03/26/19 03/27/19 03/28/19 06:59 06:59 06:59 Intake Total 2950 2800 1320 Output Total 1250 1700 2100 Balance 1700 1100 -780 Result Diagrams: 03/27/19 04:19 03/27/19 04:19 Additional Labs: Accuchecks 03/27/19 03/27/19 03/27/19 20:24 17:23 10:52 POC Glucose 218 H 169 H 165 H 03/27/19 05:07 POC Glucose 164 H EKG Reviewed by me: Yes (Tele SR) Phys Exam - Physical Examination Constitutional: NAD Respiratory: no wheezing, no rhonchi Cardiovascular: RRR, no rub Gastrointestinal: soft, positive bowel sounds mild left sided tenderness, no guarding Musculoskeletal: no edema Neurological: moves all 4 limbs Dx/Plan - Plan DVT proph w/SCDs IMPRESSION: 1. Systemic inflammatory response syndrome, suspected secondary to urinary tract infection. 2. Left lateral abdominal pain of unclear etiology. Suspected secondary to esophageal dysmotility versus irritable bowel syndrome. 3. Acute kidney injury on chronic kidney disease stage 2. 4. Hypokalemia, corrected. 5. Diabetes mellitus type 2 with diabetic neuropathy. 6. Fibromyalgia. 7. Hypertension. 8. Pulmonary sarcoidosis, on chronic steroids. 9. Dyslipidemia. 10. Hemorrhoids. 11. Anxiety. 12. Depression, mild, stable. 13. Seasonal allergies. 14. Multiple antibiotic allergy. PLAN: Cont IV Ceftriaxone Cont PO Cardirejim Dr Gordillo to access the patient today for need of antibiotics DC IVF BINDER OPERATOR input appreciated Cholestyramine discontinued. ContMiraLAX/PPIs Continue other home medications including glimepiride with sliding scale. DC in 24 hr if stable Review of Systems - Review of Systems Cardiovascular: negative: chest pain, palpitations, orthopnea, paroxysmal nocturnal dyspnea, edema, light headedness, other Gastrointestinal: Abdominal Pain. negative: Nausea, Vomiting, Diarrhea, Constipation, Melena, Hematochezia, Other - Medications/Allergies Allergies/Adverse Reactions: Allergies Allergy/AdvReac Type Severity Reaction Status Date / Time ciprofloxacin [From Cipro] Allergy Verified 09/27/14 14:40 ciprofloxacin HCl Allergy Verified 09/27/14 14:40 [From Cipro] codeine Allergy Verified 09/27/14 14:40 nitrofurantoin Allergy Verified 09/27/14 14:40 [From Macrobid] nitrofurantoin Allergy Verified 09/27/14 14:40 macrocrystalline [From Macrobid] sulfamethoxazole Allergy Verified 03/02/18 10:19 [From Bactrim] trimethoprim [From Bactrim] Allergy Verified 03/02/18 10:19 Medications: Current Medications Acetaminophen (Tylenol) 650 mg PO Q4H PRN PRN Reason: Headache/Fever/Mild Pain (1-3) Hydrocodone Bitart/Acetaminophen ([place] 5/325) 1 tab PO Q4H PRN PRN Reason: Severe Pain (7-10) Last Admin: 03/25/19 14:40 Dose: 1 tab Hydrocodone Bitart/Acetaminophen ([place] 10/325) 1 tab PO Q8HR PRN PRN Reason: Severe Pain (7-10) Last Admin: 03/26/19 17:06 Dose: 1 tab Albuterol Sulfate (Proventil Hfa) 2 puff INH [id number] PRN PRN Reason: SOB &/or Wheezing Albuterol/Ipratropium (Duoneb) 3 ml NEB [id number] [facility] Last Admin: 03/27/19 19:29 Dose: 3 ml Albuterol/Ipratropium (Duoneb) 3 ml NEB QID PRN PRN Reason: SOB &/or Wheezing Alogliptin Benzoate (Alogliptin) 6.25 mg PO DAILY [facility] Last Admin: 03/27/19 09:56 Dose: 6.25 mg Azelastine HCl (Azelastine) 0 ml NS BID [facility] Last Admin: 03/27/19 20:14 Dose: Not Given Benzonatate (Tessalon) 100 mg PO TID PRN PRN Reason: Cough Calcium Carbonate (Tums) 1,000 mg PO Q4H PRN PRN Reason: Heartburn or Indigestion Calcium/Vitamin D (Caltrate 600 + Vit D) [facility] Cyclobenzaprine HCl (Flexeril) 10 mg PO TID PRN PRN Reason: Muscle Spasm Dextrose/Water (Dextrose 50%) 25 gm SLOW IVP PRN PRN PRN Reason: Hypoglycemia Dicyclomine HCl (Bentyl) 20 mg PO QID PRN PRN Reason: cramping Diltiazem HCl (Cardizem) 30 mg PO ACHS [facility] Last Admin: 03/27/19 20:14 Dose: 30 mg Duloxetine HCl (Cymbalta) 60 mg PO DAILY [facility] Last Admin: 03/27/19 09:56 Dose: 60 mg Enoxaparin Sodium (Lovenox) 40 mg SC 0900 [facility] Last Admin: 03/27/19 09:55 Dose: 40 mg Fluticasone Propionate (Flonase Nasal Rogers) 0 gm NASAL DAILY PRN PRN Reason: RHINITIS Glimepiride (Amaryl) 2 mg PO QAM[facility] Last Admin: 03/27/19 08:07 Dose: 2 mg Glucagon (Glucagon) 1 mg IM PRN PRN PRN Reason: Hypoglycemia Hydralazine HCl (Apresoline) 10 mg SLOW IVP Q4H PRN PRN Reason: SBP Greater Than 180 Hyoscyamine Sulfate (Levsin Sl) 0.125 mg SL Q6HR PRN PRN Reason: cramping Dextrose/Water (D5w) 1,000 mls @ 0 mls/hr IV .Q0M PRN PRN Reason: Hypoglycemia Potassium Chloride/Sodium Chloride (Ns 0.9% W/ 20 Meq Kcl) 1,000 ml in 1,000 mls @ 50 mls/hr IV .Q20H [facility] Stop: 03/27/19 23:59 Last Admin: 03/27/19 05:23 Dose: 1,000 mls Insulin Human Regular (Humulin R) 0 units SC .BEDTIME SLIDING SC PRN PRN Reason: Bedtime Correctional Scale Last Admin: 03/26/19 20:40 Dose: 2 unit Insulin Human Regular (Humulin R) 0 units SC .MODERATE SLIDING SC PRN PRN Reason: Moderate Correctional Scale Last Admin: 03/27/19 05:24 Dose: 2 unit Methocarbamol (Robaxin) 750 mg PO TID PRN PRN Reason: Muscle Spasm Mometasone Furoate (Asmanex Twisthaler) 1 puff INH 1830 [facility] Last Admin: 03/27/19 19:30 Dose: 1 puff Ondansetron HCl (Zofran Odt) 4 mg PO Q4H PRN PRN Reason: Nausea/Vomiting Ondansetron HCl (Zofran) 4 mg IVP Q4H PRN PRN Reason: Nausea/Vomiting Last Admin: 03/26/19 17:06 Dose: 4 mg Pantoprazole Sodium (Protonix) 40 mg PO DAILY [facility] Last Admin: 03/27/19 09:56 Dose: 40 mg Polyethylene Glycol (Miralax) 17 gm PO DAILY [facility] Last Admin: 03/27/19 10:02 Dose: 17 gm Prednisone (Prednisone) 20 mg PO QA-[facility] Last Admin: 03/27/19 08:07 Dose: 20 mg Pregabalin (Lyrica) 100 mg PO TID [facility] Last Admin: 03/27/19 20:13 Dose: 100 mg Senna/Docusate Sodium (Senokot S) 1 tab PO BID [facility] Last Admin: 03/27/19 20:14 Dose: Not Given Sodium Chloride (Flush - Normal Saline) 10 ml IVF PRN PRN PRN Reason: Saline Flush
[2019-03-28] MEDS ORDERED: Calcium Carbonate + Vit D 1 TAB PO SCH (08:00)
[2019-03-28] MEDS: predniSONE 20 MG TAB PO SCH (08:23)
[2019-03-28] MEDS: Glimepiride 2 MG TAB PO SCH (08:23)
[2019-03-28] MEDS: Alogliptin 6.25 MG TAB PO SCH (09:08)
[2019-03-28] MEDS: Senokot S 8.6-50 MG TAB PO SCH (09:08)
[2019-03-28] MEDS: Azelastine 137 MCG/Spray 30 ML NS SCH (09:08)
[2019-03-28] MEDS: DULoxetine 60 MG CAP PO SCH (09:08)
[2019-03-28] MEDS: Polyethylene Glycol 3350 17 GM Packet PO SCH (09:08)
[2019-03-28] MEDS: Enoxaparin Sodium 40 MG/0.4 ML SYRINGE SC SCH (09:08)
[2019-03-28] MEDS: Pregabalin 50 MG CAP PO SCH (09:09)
[2019-03-28 12:12] VITALS: BP 168/76; TEMP 98.1
--- NOTE | 2019-03-28 15:17 | PRG ---
DATE OF SERVICE: 03/28/2019 SUBJECTIVE: Ms. Galarza denies abdominal pain. No nausea or vomiting. No respiratory symptoms. OBJECTIVE: VITAL SIGNS: Have been normal. She is afebrile. GENERAL: Awake, alert, and oriented. LUNGS: Clear to auscultation and percussion. ABDOMEN: Soft, not distended. LABORATORY DATA: White cell count is at 12.4, hemoglobin 11, platelets 214. The chemistry is normal except for hyperglycemia. Blood cultures negative. Urine culture, final with probable contamination of the sample. Thoracic spine MRI and the abdomen CT without any significant findings. ASSESSMENT AND DISCUSSION: Type 2 diabetes; sarcoid, pulmonary location reportedly; chronic left upper quadrant pain with some radiculopathic features. The imaging studies did not reveal any abnormalities in the thoracic spine. The CT did not show anything in the abdomen that would be concerning for inflammatory process. Therefore, I would discontinue antimicrobial therapy. According to Dr. Jaimes's description, apparently the patient's pulmonary physician identified some exacerbation of her underlying sarcoidosis, but I do not find any evidence of that in clinical findings including imaging studies, so I do not know what the basis for that statement is. In that regard, I think it would be important to not prescribe systemic corticosteroids to avoid the complications associated. Job ID: [id number]
--- NOTE | 2019-03-29 09:35 | DIS ---
DATE OF ADMISSION: 03/25/2019 DATE OF DISCHARGE: 03/28/2019 DISCHARGE DISPOSITION: Home. FOLLOWUP: Follow up with primary care physician, Dr. Perez in 1 week. BRIEF HOSPITAL COURSE: The patient is a 68-year-old female with chronic abdominal pain, presented to the hospital with worsening left-sided abdominal pain. Please refer to the history and physical for further details. The patient was admitted to the hospital with a diagnosis of left-sided abdominal pain of unclear etiology. Please note that the patient was seen at [facility] recently and underwent a CT scan of the abdomen as well as upper GI series. She was found to have GERD along with esophageal dysmotility. She also completed antibiotics recently. H. pylori stool antigen recently was negative as well. Her WBC count on admission was 20.9, concerning for sepsis. She was monitored on telemetry and was started on broad-spectrum antibiotics. Blood cultures were negative. Urine culture showed 10,000 to 25,000 mixed skin brady. The patient was evaluated by Gastroenterology, Dr. Red, as well as Infectious Disease, Dr. Gordillo. She was advised to discontinue cholestyramine. Dr. Red recommended daily MiraLAX. Her symptoms are probably secondary to irritable bowel syndrome. She underwent a CT scan of the abdomen with IV contrast that was negative for acute findings. She also had MRI of the thoracic spine per Infectious Disease that showed possible small posterior disk osteophyte complex at T11-T12 with minimal effacement of the ventral CSF space. Lumbar spine MRI maybe helpful if clinically warranted. Primary care physician advised to follow. Please note that this lower thoracic spine was poorly evaluated due to motion artifact per radiologist. FINAL DIAGNOSES: 1. Systemic inflammatory response syndrome secondary to noninfectious cause. Urinary tract infection has been ruled out by Infectious Disease. 2. Acute on chronic left lateral abdominal pain secondary to irritable bowel syndrome. 3. Esophageal dysmotility diagnosed recently at [facility]. She was educated by Speech Therapy on dietary modification. 4. History of hemorrhoids. 5. History of gastritis with hiatal hernia. The patient was started on PPIs. 6. Acute kidney injury on chronic kidney disease stage 2, improved. 7. Hypokalemia, corrected. 8. Diabetes mellitus type 2 with diabetic neuropathy. 9. Fibromyalgia. 10. Pulmonary sarcoidosis, on chronic steroids at 20 mg prednisone daily. The patient was advised to follow up with Pulmonary within a week. 11. Hypertension. 12. Dyslipidemia. 13. Anxiety. 14. Depression, mild, stable. 15. Multiple antibiotic allergies. 16. Seasonal allergies. TIME SPENT: Total time coordinating the discharge of this patient was 40 minutes. DISCHARGE MEDICATIONS: Cholestyramine was discontinued. MiraLAX was added. All other medications were left unchanged. Job ID: [id number]
--- NOTE | 2019-03-29 16:20 | EKG ---
Test Reason : Blood Pressure : / mmHG Vent. Rate : 097 BPM Atrial Rate : 097 BPM P-R Int : 120 ms QRS Dur : 068 ms QT Int : 336 ms P-R-T Axes : 004 -16 015 degrees QTc Int : 426 ms Normal sinus rhythm Possible Left atrial enlargement Inferior infarct , age undetermined Abnormal ECG Confirmed by HAYDEN MCKEON, NIURKA ([id number]), editorial cartoonist LISSETTE YING ([id number]) on 03/29/2019 4:20:00 PM Referred By: Confirmed By:NIURKA BLAKE MD
== END 2019-03-28 13:34 | disposition home or self-care (01) | DRG 392 ==
LOC: ERS 08:11 → EEVIPCON 12:33 → 2NO 12:33
PROVIDERS: ADMIT Internal Medicine; ATTEND Internal Medicine
DX: K58.9 Irritable bowel syndrome, unspecified (principal); R65.10 Systemic inflammatory response syndrome (SIRS) of non-infectious origin without acute organ dysfunction; N17.9 Acute kidney failure, unspecified; E11.22 Type 2 diabetes mellitus with diabetic chronic kidney disease; D86.9 Sarcoidosis, unspecified; I12.9 Hypertensive chronic kidney disease with stage 1 through stage 4 chronic kidney disease, or unspecified chronic kidney disease; E78.5 Hyperlipidemia, unspecified; E66.9 Obesity, unspecified; K21.9 Gastro-esophageal reflux disease without esophagitis; F41.9 Anxiety disorder, unspecified; E11.40 Type 2 diabetes mellitus with diabetic neuropathy, unspecified; J30.9 Allergic rhinitis, unspecified; D64.9 Anemia, unspecified; K64.9 Unspecified hemorrhoids; N18.2 Chronic kidney disease, stage 2 (mild); M79.7 Fibromyalgia; F32.9 Major depressive disorder, single episode, unspecified; E87.6 Hypokalemia; K22.4 Dyskinesia of esophagus; E53.8 Deficiency of other specified B group vitamins; Z87.891 Personal history of nicotine dependence; Z88.5 Allergy status to narcotic agent; Z79.52 Long term (current) use of systemic steroids; Z88.1 Allergy status to other antibiotic agents; Z79.84 Long term (current) use of oral hypoglycemic drugs
CPT/HCPCS: 36415; 36416; 71045; 72157; 74176; 74177; 80048; 80053; 81003; 81015; 82550; 83605; 83690; 83735; 83880; 84484; 85025; 85379; 86140; 87040; 87086; 93005; 94640; 94760; 96361; 96365; 96375; C9113; J0692; J0696; J1650; J1815; J1885; J2185; J2405; J3475; J3480; J3490; J7050; J7512; J7620; Q0162

== ENCOUNTER 2019-04-05 08:57 | Emergency (ER) | payer MEDICARE ==
[2019-04-05 10:01] LABS: #Eosinphils 0.1 thou/uL (0.0-0.7); #Lymphocytes 1.6 thou/uL (1.20-3.40); #Monocytes 0.7 thou/uL (0.11-0.59); #Neutrophils 13.6 thou/uL (1.40-6.50); %Basophils 0.3 % (0.0-1.0); %Eosinophils 0.7 % (0.0-10.0); %Lymphocytes 10.1 % (21.0-51.0); %Monocytes 4.1 % (0.0-10.0); %Neutrophils 84.8 % (42.0-75.0); Hemoglobin 12.6 g/dL (12.0-16.0); Mean Corpuscular HGB CONC 31.9 g/dL (32.0-36.0); Mean Corpuscular Volume 87.7 fL (78.0-98.0); Mean Platelet Volume 9.4 fL (7.4-10.4); Platelet Count 219 thou/uL (130-400); RBC Distribution Width 15.4 % (11.5-14.5); Red Blood Cell (RBC) Count 4.51 mill/uL (4.20-5.40)
[2019-04-05 10:20] LABS: ALT (SGPT) 15 U/L (8-55); AST (SGOT) 15 U/L (5-34); Alkaline Phosphatase 115 U/L (40-150); Anion Gap 14 mmol/L (10-20); BUN (Urea Nitrogen) 19 mg/dL (9.8-20.1); Bilirubin, Total 0.5 mg/dL (0.2-1.2); Calc. Creatinine Clearance 0 mL/min (70-130); Calcium 10.4 mg/dL (7.8-10.44); Carbon Dioxide 28 mmol/L (23-31); Chloride 104 mmol/L (98-107); Estimated GFR-MDRD 56; Glucose 112 mg/dL (80-115); Potassium 3.7 mmol/L (3.5-5.1); Sodium 142 mmol/L (136-145)
--- NOTE | 2019-04-05 11:20 | RAD ---
PORTABLE CHEST 1 VIEW: Date: 04/05/19 Time: 1026 hours HISTORY: Chest pain. FINDINGS: Comparison made with exam of 03/25/19. Mild cardiomegaly is stable. No focal areas of consolidation, pneumothoraces, lance pulmonary edema, or pleural effusions are seen. IMPRESSION: No acute process. POS: [facility]
[2019-04-05 11:44] LABS: Bilirubin Negative (Negative); Blood, Urine Negative (Negative); Clarity Clear (Clear); Glucose, Urine (Dipstick) Normal (Negative); Leukocyte Negative Leu/uL (Negative); Nitrite Negative (Negative); Protein, Urine (Dipstick) Negative (Neg-Trace); Urobilinogen Normal mg/dL (Less than 2)
[2019-04-05] MEDS ORDERED: ISOVUE-370 76%-LOCM 1 ML ONE (11:55)
--- NOTE | 2019-04-05 13:18 | CT ---
CTA Angio Chest W WO Con 04/05/2019 12:27 PM Indication: Numbness in the fingers and feet with chest pain Technique: Multiple CTA images were obtained of the thorax with IV contrast. 3D reformatted images were constructed from the raw data. Comparison: October 04, 2006 Findings: Pulmonary arteries: No central or segmental pulmonary embolus is evident. Heart and Great Vessels: There is mild cardiomegaly. There are mild vascular calcifications involvin g thoracic aorta and coronary arteries Lungs:There is subsegmental volume loss seen within both lower lobes Pleural space: Clear. Upper Abdomen: No acute abnormality. Osseous Structures: No acute fracture or subluxation demonstrated. There is scattered degenerative a nd osteoarthritic change present. Impression: No central or segmental pulmonary embolus.
== END 2019-04-05 14:11 | disposition home or self-care (01) ==
LOC: ERS 08:57
DX: R07.89 Other chest pain (principal); F41.9 Anxiety disorder, unspecified; E11.9 Type 2 diabetes mellitus without complications; I10 Essential (primary) hypertension; Z87.891 Personal history of nicotine dependence
CPT/HCPCS: 36415; 71045; 71275; 80053; 81003; 84484; 85025; 93005; Q9966

== ENCOUNTER 2019-04-27 14:05 | Inpatient (IN) | payer MEDICARE ==
[2019-04-27 15:18] LABS: Hemoglobin 13.3 g/dL (12.0-16.0); Mean Corpuscular HGB CONC 32.3 g/dL (32.0-36.0); Mean Corpuscular Hemoglobin 28.3 pg (27.0-31.0); Mean Corpuscular Volume 87.4 fL (78.0-98.0); RBC Distribution Width 15.7 % (11.5-14.5); Red Blood Cell (RBC) Count 4.71 mill/uL (4.20-5.40)
[2019-04-27 15:33] LABS: ALT (SGPT) 22 U/L (8-55); AST (SGOT) 19 U/L (5-34); Albumin 4.3 g/dL (3.4-4.8); Alkaline Phosphatase 99 U/L (40-150); Anion Gap 14 mmol/L (10-20); BUN (Urea Nitrogen) 23 mg/dL (9.8-20.1); Bilirubin, Total 0.5 mg/dL (0.2-1.2); Calc. Creatinine Clearance 0 mL/min (70-130); Calcium 9.9 mg/dL (7.8-10.44); Carbon Dioxide 24 mmol/L (23-31); Chloride 101 mmol/L (98-107); Estimated GFR-MDRD 48; Globulin 2.8 g/dL (2.4-3.5); Glucose 217 mg/dL (80-115); Potassium 4.4 mmol/L (3.5-5.1); Protein, Total 7.1 g/dL (6.0-8.3); Sodium 135 mmol/L (136-145)
[2019-04-27 15:51] LABS: Bacteria/HPF 3+ HPF (None Seen); Bilirubin Negative (Negative); Blood, Urine Negative (Negative); Clarity Clear (Clear); Glucose, Urine (Dipstick) Normal (Negative); Leukocyte 75 Leu/uL (Negative); Nitrite Negative (Negative); Protein, Urine (Dipstick) Negative (Neg-Trace); RBC/HPF 0-3 HPF (0-3); Urobilinogen Normal mg/dL (Less than 2)
[2019-04-27 15:51] LABS: Band 6 % (5-11); Lymphocytes 10 % (21-51); MDiff Complete? YES; Mean Platelet Volume 10.1 fL (7.4-10.4); Monocytes 7 % (0-10); Neutrophil 77 % (42-75); Ovalocytes SLIGHT = 2-5 cells (100X) (0-1/hpf); Platelet Count 230 thou/uL (130-400); Platelet Morphology Comment Appears Adequate; Polychromasia SLIGHT = 2-3 cells (100X) (0-2/hpf); Tear Drops SLIGHT = 2-5 cells (100X) (0-1/hpf)
[2019-04-27] MEDS ORDERED: cefTRIAXone\\ROCEPHIN 2 GM VIAL ONE (16:01)
[2019-04-27] MEDS ORDERED: Morphine 4 MG/ML VIAL ONE (16:33)
--- NOTE | 2019-04-27 18:08 | HP ---
PRIMARY CARE PHYSICIAN: Dr. Perez at [facility]. CHIEF COMPLAINT: Pain on the left side. HISTORY OF PRESENT ILLNESS: Ms. Galarza is a very pleasant 68-year-old female, who has a history of hypertension and diabetes mellitus. She was recently admitted to the hospital about a month ago and she was found to have irritable bowel syndrome at that time. She says that she was doing fine until about 3 days ago, when she suddenly developed pain in her left side. She says it has started off mild to moderate, then progressively got worse. She says it has gotten to the point where it is about 10/10. It was associated with some nausea and the pain radiated around into the lower abdomen on the left side. She had no vomiting, but did feel some nausea. No fever, but she had some chills. She admits to having some burning in her urine and increased urinary frequency and says it is similar to when she has had a urinary tract infection in the past. She denies any trouble emptying her bladder and believes that she has been keeping up with fluid intake. She came to the emergency room for evaluation, where she was found to have an elevated white blood cell count as well as an elevated lactic acid and urine significant for bacteriuria and positive leukocyte esterase, and is being admitted for presumed pyelonephritis. REVIEW OF SYSTEMS: CONSTITUTIONAL: She has had subjective chills, but no fevers. No night sweats. No weight loss. HEENT: She denies any headaches. No dizziness. No visual changes. No sore throat. No rhinorrhea. No neck pain. No adenopathy. PULMONARY: No hemoptysis. No cough. No wheezing. CARDIOVASCULAR: She denies any chest pain. No shortness of breath. No PND. No orthopnea. GASTROINTESTINAL: As the history of present illness. GENITOURINARY: Also as the history of present illness. MUSCULOSKELETAL: No muscle pains, weakness, or joint pains. NEUROLOGIC: No focal weakness or numbness. No seizures. PSYCHIATRIC: No symptoms of anxiety or depression. SKIN AND INTEGUMENT: No skin changes. No rash. PAST MEDICAL HISTORY: Significant for diabetes mellitus, type 2; hypertension; and sarcoidosis. PAST SURGICAL HISTORY: She has had a cholecystectomy as well as surgery for bowel obstruction. She has had a tonsillectomy, as well as hysterectomy and oophorectomy, she says this was due to cyst. ALLERGIES: TO BACTRIM, MACROBID, AND CIPRO, ALL OF WHICH CAUSE HER TO ITCH WITH NO RASH. SOCIAL HISTORY: She is . She is a nonsmoker and nondrinker. She has 4 sons. FAMILY HISTORY: Significant for diabetes mellitus in her mother and cancer in the father. CURRENT MEDICATIONS: She is not really sure what her medications are. CODE STATUS: Full code. PHYSICAL EXAMINATION: GENERAL: She is well developed and well nourished. She appears to be in no distress. VITAL SIGNS: Blood pressure was 107/73, heart rate 104, respiratory rate of 20, and temperature is 99.1. HEENT: Her pupils are equal, round, and reactive to light. Extraocular muscles are intact. Her sclerae are anicteric. Throat; there is no erythema, no exudates. NECK: No adenopathy. No bruits. LUNGS: Clear to auscultation. There is no wheezing, no rales, no rhonchi. CARDIOVASCULAR: She has a normal S1 and S2. I did not appreciate an S3 or S4. No murmurs, clicks, or rubs. ABDOMEN: Soft. She did have some left mid to lower quadrant tenderness as well as some flank tenderness. There is no rebound, no guarding, no organomegaly. EXTREMITIES: There is no calf tenderness. No joint effusions. NEUROLOGIC: Her cranial nerves 2 through 12 are intact. Her muscle strength is 5/5 in both upper and lower extremities. SKIN AND INTEGUMENT: There is a small, approximately 4 to 5 cm oval red lesion on the left anterior vu. Otherwise, no other skin lesions. LABORATORY DATA: White blood cell count is 20, hemoglobin 13.3, hematocrit is 41.2, and platelet count is 230. Sodium 135, potassium 4.4, chloride is 101, CO2 is 24, BUN of 23, creatinine of 1.32, glucose is 217. Urinalysis is positive for 3+ bacteria and positive leukocyte esterase. ASSESSMENT: This is a pleasant 68-year-old female, who presents with left flank pain and bacteriuria as well as an elevated white blood cell count. It is noted that her white blood cell count has been elevated for several admissions; however, it is a bit higher than usual. She will be admitted due to presumed pyelonephritis. Also, diverticulitis is a potential etiology as well, given the location of the pain. She could also have nephrolithiasis, but there were no red blood cells seen in the urine, and therefore, this is less likely. 1. For pyelonephritis, we will place her on Rocephin and Flagyl and await culture results, and the Flagyl will be in the event that it is a diverticulitis. 2. Diabetes mellitus. We will continue her home medications as well as a sliding scale. 3. Sarcoidosis. She is on prednisone 5 mg daily and this will be continued, and she will be also placed on deep venous thrombosis and gastrointestinal prophylaxis. Job ID: [id number]
[2019-04-27 19:48] LABS: Lactic Acid 2.2 mmol/L (0.5-2.2)
[2019-04-27] MEDS ORDERED: Acetaminophen 650 MG Suppository PR PRN (20:40)
[2019-04-27] MEDS ORDERED: Ondansetron ODT 4 MG TAB PO PRN (20:40)
[2019-04-27] MEDS ORDERED: Dextrose 50% Abboject 50 ML SYRINGE SLOW IVP PRN (20:40)
[2019-04-27] MEDS ORDERED: Ondansetron PF 4 MG/2 ML Vial IVP PRN (20:40)
[2019-04-27] MEDS ORDERED: HumaLOG 300 UNITS/3 ML VIAL SC PRN ×2 (20:40)
[2019-04-27] MEDS ORDERED: Dextrose 5% in Water 1,000 ML IV PRN (20:40)
[2019-04-27] MEDS ORDERED: hydrALAZINE 20 MG/ML VIAL SLOW IVP PRN (20:40)
[2019-04-27 20:52] VITALS: BMI 34.4
[2019-04-27] MEDS: Sodium Chloride 0.9% 1,000 ML IV SCH (21:09)
[2019-04-27] MEDS: Famotidine 20 MG TAB PO SCH (21:12)
[2019-04-27] MEDS: metroNIDAZOLE 500 MG in Premix Bag 1 BAG IVPB SCH (21:12)
[2019-04-28 05:03] LABS: #Basophils 0.1 thou/uL (0.0-0.2); #Eosinphils 0.3 thou/uL (0.0-0.7); #Lymphocytes 4.8 thou/uL (1.20-3.40); #Monocytes 1.5 thou/uL (0.11-0.59); %Basophils 0.5 % (0.0-1.0); %Eosinophils 1.8 % (0.0-10.0); %Lymphocytes 25.8 % (21.0-51.0); %Monocytes 7.8 % (0.0-10.0); %Neutrophils 64.2 % (42.0-75.0); Hemoglobin 13.3 g/dL (12.0-16.0); Mean Corpuscular HGB CONC 31.6 g/dL (32.0-36.0); Mean Corpuscular Hemoglobin 28.2 pg (27.0-31.0); Mean Corpuscular Volume 89.4 fL (78.0-98.0); Mean Platelet Volume 10.5 fL (7.4-10.4); Platelet Count 205 thou/uL (130-400); RBC Distribution Width 15.8 % (11.5-14.5); White Blood Cell (WBC) Count 18.7 thou/uL (4.8-10.8)
[2019-04-28] MEDS: Acetaminophen 325 MG TAB PO PRN ×3 (05:13→16:49)
[2019-04-28] MEDS: metroNIDAZOLE 500 MG in Premix Bag 1 BAG IVPB SCH ×3 (05:14→21:08)
[2019-04-28 05:23] LABS: Anion Gap 15 mmol/L (10-20); BUN (Urea Nitrogen) 21 mg/dL (9.8-20.1); Calc. Creatinine Clearance 66 mL/min (70-130); Calcium 9.2 mg/dL (7.8-10.44); Carbon Dioxide 22 mmol/L (23-31); Chloride 104 mmol/L (98-107); Estimated GFR-MDRD 55; Glucose 112 mg/dL (80-115); Potassium 4.3 mmol/L (3.5-5.1); Sodium 137 mmol/L (136-145)
[2019-04-28] MEDS ORDERED: hydrOXYzine 25 MG TAB PO PRN (08:15)
[2019-04-28] MEDS ORDERED: Dicyclomine 20 MG TAB PO PRN (08:15)
[2019-04-28] MEDS ORDERED: Benzonatate 100 MG CAP PO PRN (08:15)
[2019-04-28] MEDS: Enoxaparin Sodium 40 MG/0.4 ML SYRINGE SC SCH (08:25)
[2019-04-28] MEDS: Sodium Chloride 0.9% 1,000 ML IV SCH (08:25)
[2019-04-28] MEDS: Lisinopril 5 MG TAB PO SCH ×2 (08:32→08:41)
[2019-04-28] MEDS: Pregabalin 50 MG CAP PO SCH ×3 (08:34→20:29)
[2019-04-28] MEDS: Alogliptin 6.25 MG TAB PO SCH (08:34)
[2019-04-28] MEDS: Polyethylene Glycol 3350 17 GM Packet PO SCH (08:41)
[2019-04-28] MEDS ORDERED: HYDROcodone/Acetaminophen 10/325 mg Tablet PO PRN (11:36)
--- NOTE | 2019-04-28 11:39 | PDOC.HOSPP ---
- Subjective Encounter Date: 04/28/19 Encounter Time: 11:37 Subjective: Ms. Galarza was seen today in follow-up of Pyelonephritis. She says the pain in her left side has improved. - Objective Vital Signs & Weight: Vital Signs (12 hours) Temp Pulse Resp BP BP Pulse Ox 04/28/19 11:14 97.7 F 85 18 97/60 98 04/28/19 08:41 83 04/28/19 08:00 97.0 F L 83 20 104/67 98 04/28/19 04:00 97.6 F 85 20 93/64 100 Weight Weight 207 lb I&O: 04/27/19 04/28/19 04/29/19 06:59 06:59 06:59 Intake Total 990 Balance 990 Result Diagrams: 04/28/19 04:27 04/28/19 04:27 Additional Labs: Accuchecks 04/28/19 04/27/19 05:09 20:30 POC Glucose 120 H 154 H ROS - Medication Medications: Active Medications Generic Name Dose Route Start Last Admin Trade Name Freq PRN Reason Stop Dose Admin Acetaminophen 650 mg 04/27/19 20:40 04/28/19 08:35 Tylenol PO 650 mg Q4H PRN Administration Headache/Fever/Mild Pain (1-3) Alogliptin Benzoate 6.25 mg 04/28/19 09:00 04/28/19 08:34 Alogliptin PO 6.25 mg DAILY MÓNICA Administration Enoxaparin Sodium 40 mg 04/28/19 09:00 04/28/19 08:25 Lovenox SC 40 mg 0900 MÓNICA Administration Famotidine 20 mg 04/27/19 21:00 04/27/19 21:12 Pepcid PO 20 mg 2100 MÓNICA Administration Metronidazole 500 mg/ Device 100 mls @ 100 mls/hr 04/27/19 22:00 04/28/19 11: 25 IVPB 100 mls Q8HR MÓNICA Administration Sodium Chloride 1,000 mls @ 70 mls/hr 04/27/19 20:40 04/28/19 08:25 Normal Saline 0.9% IV 1,000 mls .[id number] MÓNICA Administration Lisinopril 5 mg 04/28/19 09:00 04/28/19 08:41 Zestril PO Not Given DAILY MÓNICA Polyethylene Glycol 17 gm 04/28/19 09:00 04/28/19 08:41 Miralax PO Not Given DAILY MÓNICA Pregabalin 100 mg 04/28/19 09:00 04/28/19 08:34 Lyrica PO 100 mg TID MÓNICA Administration - Exam Eye: PERRL, anicteric sclera Neck: supple, symmetric, no JVD, no thyromegaly, no carotid bruit Heart: RRR, no murmur, no gallops, no rubs, normal peripheral pulses Respiratory: CTAB, no wheezes, no rales, no ronchi, normal chest expansion, no tachypnea, normal percussion Gastrointestinal: soft, non-tender, non-distended, normal bowel sounds, no palpable masses, no hepatomegaly Extremities: no cyanosis, no clubbing, no edema Skin: normal turgor, no lesions Hosp A/P (1) Pyelonephritis Code(s): N12 - TUBULO-INTERSTITIAL NEPHRITIS, NOT SPCF ACUTE OR CHRONIC Status: Acute (2) Diabetes mellitus type 2 in obese Code(s): E11.69 - TYPE 2 DIABETES MELLITUS WITH OTHER SPECIFIED COMPLICATION; E66.9 - OBESITY, UNSPECIFIED Status: Chronic (3) Hypertension Code(s): I10 - ESSENTIAL (PRIMARY) HYPERTENSION Status: Chronic (4) Sarcoidosis Code(s): D86.9 - SARCOIDOSIS, UNSPECIFIED Status: Chronic - Plan * Pyelonephritis- continuue Rocephin and Flagyl- awaiting culture results * HTN- blood pressure has been low normal- will monitor, and continue gentle hydration * DM- blood glucose is stable * Sarcoidosis- stable- continue Prednisone 5mg a day
[2019-04-28] MEDS: Calcium Carbonate + Vit D 1 TAB PO SCH (16:47)
[2019-04-28] MEDS: cefTRIAXone\\ROCEPHIN 1 GM in Sodium Chloride 0.9% 100 ML IVPB SCH (16:50)
[2019-04-28] MEDS ORDERED: predniSONE 5 MG TAB PO SCH (18:00)
[2019-04-28] MEDS ORDERED: Mometasone Furoate 120 PUFF 220 MCG INH SCH (18:30)
[2019-04-28] MEDS ORDERED: Mometasone Furoate 30 PUFF 220 MCG INH SCH (19:30)
[2019-04-28] MEDS: Amitriptyline HCl 10 MG TAB PO SCH (20:28)
[2019-04-28] MEDS: Famotidine 20 MG TAB PO SCH (20:28)
[2019-04-28] MEDS: Metoclopramide HCl 10 MG TAB PO PRN (20:29)
[2019-04-29] MEDS: Sodium Chloride 0.9% 1,000 ML IV SCH ×3 (03:04→21:37)
[2019-04-29] MEDS: Methocarbamol 500 MG TAB PO PRN ×2 (03:07→14:55)
[2019-04-29] MEDS: metroNIDAZOLE 500 MG in Premix Bag 1 BAG IVPB SCH ×3 (05:28→21:36)
[2019-04-29] MEDS: Acetaminophen 325 MG TAB PO PRN ×4 (05:42→21:35)
[2019-04-29 08:56] LABS: Hemoglobin 12.3 g/dL (12.0-16.0); Mean Corpuscular HGB CONC 32.2 g/dL (32.0-36.0); Mean Corpuscular Hemoglobin 28.2 pg (27.0-31.0); Mean Corpuscular Volume 87.5 fL (78.0-98.0); Mean Platelet Volume 10.4 fL (7.4-10.4); Platelet Count 191 thou/uL (130-400); RBC Distribution Width 15.7 % (11.5-14.5); Red Blood Cell (RBC) Count 4.36 mill/uL (4.20-5.40); White Blood Cell (WBC) Count 15.3 thou/uL (4.8-10.8)
[2019-04-29] MEDS: Alogliptin 6.25 MG TAB PO SCH (08:59)
[2019-04-29] MEDS: Calcium Carbonate + Vit D 1 TAB PO SCH ×2 (09:00→14:55)
[2019-04-29] MEDS: Pregabalin 50 MG CAP PO SCH ×3 (09:00→21:34)
[2019-04-29] MEDS: Enoxaparin Sodium 40 MG/0.4 ML SYRINGE SC SCH (09:01)
[2019-04-29] MEDS: predniSONE 5 MG TAB PO SCH (09:01)
[2019-04-29] MEDS: Glimepiride 2 MG TAB PO SCH (09:01)
[2019-04-29 09:10] LABS: #Basophils 0.1 thou/uL (0.0-0.2); #Eosinphils 0.2 thou/uL (0.0-0.7); #Lymphocytes 3.8 thou/uL (1.20-3.40); #Monocytes 1.1 thou/uL (0.11-0.59); #Neutrophils 10.1 thou/uL (1.40-6.50); %Basophils 0.5 % (0.0-1.0); %Eosinophils 1.5 % (0.0-10.0); %Monocytes 7.4 % (0.0-10.0); %Neutrophils 65.5 % (42.0-75.0); Platelet Morphology Comment Appears Adequate; RBC Morphology Normal
[2019-04-29] MEDS: Lisinopril 5 MG TAB PO SCH (09:37)
[2019-04-29] MEDS: Polyethylene Glycol 3350 17 GM Packet PO SCH (09:37)
[2019-04-29] MEDS: cefTRIAXone\\ROCEPHIN 1 GM in Sodium Chloride 0.9% 100 ML IVPB SCH (14:08)
[2019-04-29] MEDS ORDERED: Cholestyramine/Aspartame 4 gm Packet PO PRN ×2 (14:11→14:52)
--- NOTE | 2019-04-29 15:07 | ULT ---
US Renal Bilateral STANDARD History: Recurrent urinary tract infections Comparison: CT Stone protocol March 23, 2019 Findings: Real-time grayscale and color evaluation of the kidneys and urinary bladder was performed. Lobular contour right kidney. Right kidney measures 9 x 6.8 x 5.4 cm left kidney measures 11.3 x 6.8 x 5.8 cm. Prevoid urinary bladder volume is 100 mL. No renal mass, hydronephrosis, or abnormal calcifications Impression: Normal renal ultrasound. Retained lobulation.
--- NOTE | 2019-04-29 18:00 | PDOC.HOSPP ---
- Subjective Encounter Date: 04/29/19 Encounter Time: 17:57 Subjective: Ms. Galarza was seen today in follow-up of pyelonephritis. She notes the return of some " cramping like pain in her back" on the left side. She also says she feels " shaky". Otherwise ok. - Objective Vital Signs & Weight: Vital Signs (12 hours) Temp Pulse Resp BP Pulse Ox 04/29/19 16:15 113/61 04/29/19 11:13 98.0 F 81 18 99/68 99 04/29/19 09:37 90 04/29/19 08:00 97.6 F 90 20 101/66 99 Weight Admit Weight 207 lb Weight 207 lb I&O: 04/28/19 04/29/19 04/30/19 06:59 06:59 06:59 Intake Total 990 1200 2340 Balance 990 1200 2340 Result Diagrams: 04/29/19 08:17 04/28/19 04:27 Additional Labs: Accuchecks 04/29/19 04/29/19 04/29/19 16:11 11:13 09:01 POC Glucose 127 H 121 H 172 H 04/29/19 04/28/19 04:46 19:59 POC Glucose 132 H 161 H ROS - Medication Medications: Active Medications Generic Name Dose Route Start Last Admin Trade Name Freq PRN Reason Stop Dose Admin Acetaminophen 650 mg 04/27/19 20:40 04/29/19 14:09 Tylenol PO 650 mg Q4H PRN Administration Headache/Fever/Mild Pain (1-3) Alogliptin Benzoate 6.25 mg 04/28/19 09:00 04/29/19 08:59 Alogliptin PO 6.25 mg DAILY MÓNICA Administration Amitriptyline HCl 10 mg 04/28/19 21:00 04/28/19 20:28 Elavil PO 10 mg HS MÓNICA Administration Calcium/Vitamin D 1 tab 04/28/19 17:00 04/29/19 14:55 Caltrate 600 + Vit D PO 1 tab BID-WM MÓNICA Administration Dicyclomine HCl 20 mg 04/28/19 08:15 04/29/19 09:06 Bentyl PO 20 mg QID PRN Administration cramping Enoxaparin Sodium 40 mg 04/28/19 09:00 04/29/19 09:01 Lovenox SC 40 mg 0900 MÓNICA Administration Famotidine 20 mg 04/27/19 21:00 04/28/19 20:28 Pepcid PO 20 mg 2100 MÓNICA Administration Glimepiride 2 mg 04/29/19 08:00 04/29/19 09:01 Amaryl PO 2 mg QAM-WM MÓNICA Administration Ceftriaxone Sodium 1 gm/ 100 mls @ 200 mls/hr 04/28/19 16:00 04/29/19 14:08 Sodium Chloride IVPB 100 mls Q24HR@1600 MÓNICA Administration Metronidazole 500 mg/ Device 100 mls @ 100 mls/hr 04/27/19 22:00 04/29/19 09: 09 IVPB 100 mls Q8HR MÓNICA Administration Sodium Chloride 1,000 mls @ 70 mls/hr 04/27/19 20:40 04/29/19 09:09 Normal Saline 0.9% IV 1,000 mls .[id number] MÓNICA Administration Lisinopril 5 mg 04/28/19 09:00 04/29/19 09:37 Zestril PO Not Given DAILY [facility] Methocarbamol 750 mg 04/28/19 11:36 04/29/19 14:55 Robaxin PO 750 mg QID PRN Administration Muscle Spasm Metoclopramide HCl 10 mg 04/28/19 18:01 04/28/19 20:29 Reglan PO 10 mg HSPRN PRN Administration Nausea Ondansetron HCl 4 mg 04/27/19 20:40 04/29/19 08:53 Zofran Odt PO 4 mg Q6H PRN Administration Nausea/Vomiting Polyethylene Glycol 17 gm 04/28/19 09:00 04/29/19 09:37 Miralax PO Not Given DAILY [facility] Prednisone 5 mg 04/29/19 08:00 04/29/19 09:01 Prednisone PO 5 mg QAM-WM MÓNICA Administration Pregabalin 100 mg 04/28/19 09:00 04/29/19 14:07 Lyrica PO 100 mg TID MÓNICA Administration - Exam Eye: PERRL, anicteric sclera Heart: RRR, no murmur, no gallops, no rubs, normal peripheral pulses Respiratory: CTAB, no wheezes, no rales, no ronchi, normal chest expansion Gastrointestinal: soft, non-tender, non-distended, normal bowel sounds, no palpable masses, no hepatomegaly, no splenomegaly, no bruit Extremities: no cyanosis, no clubbing, no edema Hosp A/P (1) Pyelonephritis Code(s): N12 - TUBULO-INTERSTITIAL NEPHRITIS, NOT SPCF ACUTE OR CHRONIC Status: Acute (2) Diabetes mellitus type 2 in obese Code(s): E11.69 - TYPE 2 DIABETES MELLITUS WITH OTHER SPECIFIED COMPLICATION; E66.9 - OBESITY, UNSPECIFIED Status: Chronic (3) Hypertension Code(s): I10 - ESSENTIAL (PRIMARY) HYPERTENSION Status: Chronic (4) Sarcoidosis Code(s): D86.9 - SARCOIDOSIS, UNSPECIFIED Status: Chronic - Plan * Pyelonephritis- continue Rocephin and Flagyl. Urine culture unfortunately appears like a contaminant, and is therefore unhelpful * Will obtain a renal ultrasound to rule out obstruction * HTN- blood pressure has been low normal- continue hydration * DM- blood glucose is stable * Sarcoidosis- stable- continue Prednisone 5mg a day * Hopefully home tomorrow
[2019-04-29] MEDS ORDERED: Mometasone Furoate 30 PUFF 220 MCG INH SCH (18:30)
[2019-04-29] MEDS: Famotidine 20 MG TAB PO SCH (21:35)
[2019-04-29] MEDS: Amitriptyline HCl 10 MG TAB PO SCH (21:35)
[2019-04-29] MEDS: Metoclopramide HCl 10 MG TAB PO PRN (21:35)
[2019-04-30] MEDS: Methocarbamol 500 MG TAB PO PRN (00:34)
[2019-04-30] MEDS: metroNIDAZOLE 500 MG in Premix Bag 1 BAG IVPB SCH ×2 (05:46→13:24)
[2019-04-30 05:54] LABS: #Basophils 0.1 thou/uL (0.0-0.2); #Eosinphils 0.3 thou/uL (0.0-0.7); #Lymphocytes 3.8 thou/uL (1.20-3.40); #Monocytes 1.3 thou/uL (0.11-0.59); #Neutrophils 8.4 thou/uL (1.40-6.50); %Basophils 0.4 % (0.0-1.0); %Eosinophils 1.8 % (0.0-10.0); %Lymphocytes 27.6 % (21.0-51.0); %Monocytes 9.5 % (0.0-10.0); %Neutrophils 60.7 % (42.0-75.0); Hemoglobin 12.2 g/dL (12.0-16.0); Mean Corpuscular Hemoglobin 28.8 pg (27.0-31.0); Mean Platelet Volume 10.3 fL (7.4-10.4); Platelet Count 171 thou/uL (130-400); RBC Distribution Width 15.7 % (11.5-14.5); Red Blood Cell (RBC) Count 4.23 mill/uL (4.20-5.40); White Blood Cell (WBC) Count 13.8 thou/uL (4.8-10.8)
[2019-04-30 06:15] LABS: Anion Gap 12 mmol/L (10-20); BUN (Urea Nitrogen) 14 mg/dL (9.8-20.1); Calc. Creatinine Clearance 74 mL/min (70-130); Calcium 8.9 mg/dL (7.8-10.44); Carbon Dioxide 22 mmol/L (23-31); Chloride 108 mmol/L (98-107); Estimated GFR-MDRD 63; Glucose 100 mg/dL (80-115); Potassium 3.9 mmol/L (3.5-5.1); Sodium 138 mmol/L (136-145)
[2019-04-30] MEDS: Alogliptin 6.25 MG TAB PO SCH (08:24)
[2019-04-30] MEDS: Pregabalin 50 MG CAP PO SCH ×2 (08:24→16:00)
[2019-04-30] MEDS: Polyethylene Glycol 3350 17 GM Packet PO SCH (08:24)
[2019-04-30] MEDS: Lisinopril 5 MG TAB PO SCH (08:25)
[2019-04-30] MEDS: predniSONE 5 MG TAB PO SCH (08:27)
[2019-04-30] MEDS: Enoxaparin Sodium 40 MG/0.4 ML SYRINGE SC SCH (08:27)
[2019-04-30] MEDS: Glimepiride 2 MG TAB PO SCH (08:27)
[2019-04-30] MEDS: Calcium Carbonate + Vit D 1 TAB PO SCH ×2 (08:27→16:06)
[2019-04-30 12:07] VITALS: TEMP 98.4
[2019-04-30] MEDS: Sodium Chloride 0.9% 1,000 ML IV SCH (13:30)
--- NOTE | 2019-04-30 13:51 | PQF ---
CLINICAL DOCUMENTATION IMPROVEMENT CLARIFICATION FORM: ICD-10 Updated PLEASE DO AN ADDENDUM TO THE PROGRESS NOTE WITH ANY DOCUMENTATION UPDATES OR ADDITIONS AND CARRY THROUGH TO DC SUMMARY. THANK YOU. DATE: 04/30/2019 ATTN: Dr. Hudson Please exercise your independent, professional judgment in responding to the clarification form. Clinical indicators are provided on the bottom of this form for your review Please check appropriate box(es): [ X ] Sepsis due to: ( pyelonephritis) [ ] Sepsis due to other: [ ] Localized infection without sepsis [ ] Other diagnosis [ ] Unable to determine In addition, please specify: Present on Admission (POA): [ X] Yes [ ] No [ ] Unable to determine For continuity of documentation, please document condition throughout progress notes and discharge summary. Thank You. CLINICAL INDICATORS - SIGNS / SYMPTOMS / LABS ER RECORD 04/27: Initially presented with symptoms of sepsis including elevated WBC, tachycardia, and body aches. Will admit for sepsis and likely pyelonephritis. LABS: 04/27: Lactic Acid 2.5 H&P 04/27: VS: BP 107/73, HR 104, Resp. 20, Temp. 99.1 LABS: WBC 20 Pn 04/28-04/29: Pyelonephritis RISKS: H&P: 68 yo, who has hx of HTN and DM. TREATMENT: MAR: Order 04/27: Flagyl 500mg IV MAR: Order 04/27: Rocephin 1 gm IV MAR: Order 04/27: NS 1,000 ml IV 70 mls/hr Thank you, Johanny (This form is maintained as a part of the permanent medical record) 2014 [employer]. All Rights Reserved Johanny Banks RN, BSN [email or web address] Office: [phone] [facility]OSPITALSil[facility]
[2019-04-30] MEDS: cefTRIAXone\\ROCEPHIN 1 GM in Sodium Chloride 0.9% 100 ML IVPB SCH (16:06)
[2019-04-30] MEDS: Acetaminophen 325 MG TAB PO PRN (16:14)
[2019-04-30 18:41] VITALS: BP 121/83
--- NOTE | 2019-05-01 02:26 | DIS ---
DATE OF ADMISSION: 04/27/2019 DATE OF DISCHARGE: 04/30/2019 PRIMARY CARE PHYSICIAN: Dr. Adrienne Perez. DISCHARGE DISPOSITION: Home. DISCHARGE DIAGNOSES: 1. Presumed pyelonephritis. 2. Sepsis secondary to #1. 3. Diabetes mellitus, type 2. 4. Hypertension. 5. Sarcoidosis. DISCHARGE MEDICATIONS: Include: 1. Omnicef 300 mg twice daily for 7 days. 2. Flagyl 500 mg t.i.d. for 7 days. 3. Protonix 40 mg daily. 4. MiraLAX 17 g daily. 5. Vitamin D one tablet twice a day. 6. Januvia 25 mg daily. 7. Lyrica 100 mg t.i.d. 8. Methocarbamol 750 mg q.i.d. 9. Lisinopril 5 mg daily. 10. Atarax 25 mg t.i.d. 11. Hydrocortisone 1 application twice a day. 12. Glimepiride 2 mg daily. 13. Ellipta 200 mcg inhaled daily. 14. Estrace vaginal cream 42.5, three times a week. 15. Bentyl 20 mg q.i.d. 16. Tessalon 100 mg t.i.d. 17. Elavil 10 mg at bedtime. 18. Albuterol 2 puffs q.i.d. PROCEDURES DONE DURING ADMISSION: The patient had a renal ultrasound, which was negative for any hydronephrosis. CODE STATUS: Full code. ALLERGIES: TO CIPROFLOXACIN, CODEINE, NITROFURANTOIN, BACTRIM, AND CIPRO. HOSPITAL COURSE: Ms. Galarza is a pleasant 68-year-old female, who was admitted to the hospital with flank pain and fever as well as elevated white count. She also had urine, which was consistent with possible urinary tract infection. Due to her symptomatology, she was admitted for presumed pyelonephritis. She did have some lower abdominal pain on the left side too, which could potentially be related to diverticulitis. For this reason, Flagyl was added to her regimen. During the course of her stay, she improved. Unfortunately, urine culture was nondiagnostic as it showed multiple organisms and possibly was a contaminant. However, she did improve on Rocephin and therefore, she will be discharged home on Omnicef. Her blood pressure tended to run low during her hospitalization and for this reason, amlodipine and hydrochlorothiazide are being held. She is to continue to hold these and only take the lisinopril until she can follow up with her primary care physician with regard to her blood pressure. She was instructed that if she had fever, development of flank pain or return of her symptoms, to come back to the hospital. Job ID: [id number]
== END 2019-04-30 18:42 | disposition home or self-care (01) | DRG 872 ==
LOC: ERS 14:05 → T4-A 16:38
PROVIDERS: ADMIT Internal Medicine; ATTEND Internal Medicine
DX: A41.9 Sepsis, unspecified organism (principal); N12 Tubulo-interstitial nephritis, not specified as acute or chronic; K57.92 Diverticulitis of intestine, part unspecified, without perforation or abscess without bleeding; I10 Essential (primary) hypertension; F41.9 Anxiety disorder, unspecified; E66.9 Obesity, unspecified; E11.69 Type 2 diabetes mellitus with other specified complication; D86.9 Sarcoidosis, unspecified; Z79.52 Long term (current) use of systemic steroids; Z87.440 Personal history of urinary (tract) infections; Z79.84 Long term (current) use of oral hypoglycemic drugs; Z90.710 Acquired absence of both cervix and uterus; Z88.1 Allergy status to other antibiotic agents; Z79.51 Long term (current) use of inhaled steroids; Z90.49 Acquired absence of other specified parts of digestive tract; Z68.34 Body mass index [BMI] 34.0-34.9, adult
CPT/HCPCS: 36415; 36416; 76770; 80048; 80053; 81003; 81015; 83605; 85025; 87040; 87086; 94640; 96365; 96367; 96375; J0696; J1650; J2270; J3370; J3490; J7512; J7620; J8597; Q0162

== ENCOUNTER 2019-05-14 11:59 | Outpatient (CLI) | payer MEDICARE ==
[~2019-05-14 11:59] MED LIST: Gadobenate Dimeglumine 529 MG/1 ML (20ML VIAL) ONE
[2019-05-14 13:55] LABS: #Basophils 0.1 thou/uL (0.0-0.2); #Eosinphils 0.3 thou/uL (0.0-0.7); #Lymphocytes 2.1 thou/uL (1.20-3.40); #Monocytes 0.7 thou/uL (0.11-0.59); #Neutrophils 7.1 thou/uL (1.40-6.50); %Basophils 1.4 % (0.0-1.0); %Lymphocytes 20.2 % (21.0-51.0); %Monocytes 7.1 % (0.0-10.0); %Neutrophils 68.4 % (42.0-75.0); Hemoglobin 12.3 g/dL (12.0-16.0); Mean Corpuscular Hemoglobin 28.3 pg (27.0-31.0); Mean Corpuscular Volume 88.3 fL (78.0-98.0); Mean Platelet Volume 10.8 fL (7.4-10.4); Platelet Count 228 thou/uL (130-400); RBC Distribution Width 16.4 % (11.5-14.5); Red Blood Cell (RBC) Count 4.34 mill/uL (4.20-5.40); White Blood Cell (WBC) Count 10.3 thou/uL (4.8-10.8)
[2019-05-14 14:08] LABS: ALT (SGPT) 9 U/L (8-55); AST (SGOT) 16 U/L (5-34); Albumin 3.7 g/dL (3.4-4.8); Alkaline Phosphatase 85 U/L (40-150); Anion Gap 10 mmol/L (10-20); BUN (Urea Nitrogen) 8 mg/dL (9.8-20.1); Bilirubin, Total 0.4 mg/dL (0.2-1.2); CRP (Inflammatory) 2.56 mg/dL (= or < 0.5); Calc. Creatinine Clearance 0 mL/min (70-130); Calcium 9.4 mg/dL (7.8-10.44); Carbon Dioxide 28 mmol/L (23-31); Chloride 106 mmol/L (98-107); Estimated GFR-MDRD 71; Globulin 2.8 g/dL (2.4-3.5); Glucose 105 mg/dL (80-115); Potassium 3.1 mmol/L (3.5-5.1); Protein, Total 6.5 g/dL (6.0-8.3); Sodium 141 mmol/L (136-145)
[2019-05-14 15:02] LABS: Bilirubin Negative (Negative); Blood, Urine Trace (Negative); Clarity Clear (Clear); Glucose, Urine (Dipstick) Negative (Negative); Leukocyte Negative (Negative); Nitrite Negative (Negative); Protein, Urine (Dipstick) Negative (Neg-Trace); Urobilinogen 0.2 mg/dL (Less than 2)
[2019-05-14 15:10] LABS: Bacteria/HPF None Seen HPF (None Seen); RBC/HPF 0-3 HPF (0-3); WBC/HPF 0-3 HPF (0-3)
--- NOTE | 2019-05-14 15:28 | MRI ---
MRI LUMBAR SPINE WITH AND WITHOUT CONTRAST: DATE: 05/14/19 HISTORY: 68-year-old female with ICD-10: M54.5, low back pain. M54.16, lumbar radiculopathy. M54.14, thoracic radiculopathy. COMPARISON: None. TECHNIQUE: Multiple sequences obtained in axial and sagittal planes, pre and post IV injection of gadolinium-bas ed contrast agent: 20 mL Multihance. FINDINGS: For the purposes of this report, it will be assumed that there are 5 lumbar-type vertebrae. The vert ebral body heights are maintained. There is no abnormal, unexpected enhancement. No major bone marrow signal abnormality. At L5-S1, there is moderate disc space narrowing. All of the rest of the disc sp aces are maintained. No major spondylolisthesis. Conus medullaris terminates at L1-2. The findings by individual levels are as follows: T11-12: Only imaged on sagittal sequences, not included on axial images. There is a right posterior p aracentral approximately 1 x 0.5 cm T2 hypointense mass protruding into the right posterior aspect of the spinal canal, possibly indenting the right posterior aspect of the spinal cord. This is probably a focal calcification of the ligamentum flavum. Moderate bilateral facet DJD with moderate right domenic ral foraminal stenosis and severe left neural foraminal stenosis. No high grade disc space narrowing. T12-L1: Normal disc. No central or neural foraminal stenosis. Moderate bilateral facet DJD. L1-2: Essentially normal. L2-3: Normal. L3-4: Moderate ligamentum flavum thickening. No high grade central or high grade neural foraminal nicole nosis. L4-5: Moderate to severe ligamentum flavum thickening. Otherwise normal. L5-S1: Moderate bilateral ligamentum flavum thickening. Moderate bilateral facet DJD. Severe bilatera l neural foraminal stenosis with indentations of bilateral exiting L5 nerve roots. Degenerative retro listhesis of L5 on S1. Broad based central and bilateral paracentral disc herniation or disc bulge ab uts the bilateral S1 nerve roots. It displaces and slightly displaces the right S1 nerve root against the right facet complex, deforming it. Mild degree of central spinal canal stenosis. IMPRESSION: 1. High grade degenerative disc disease and high grade facet osteoarthrosis at L5-S1, where ther e is severe bilateral neural foraminal stenosis and high grade right lateral recess stenosis, with ch ronic impingement of bilateral L5 and right S1 nerve roots. 2. At T11-12, there is high grade bilateral facet osteoarthrosis and high grade bilateral neural foraminal stenosis, and lesion at posterior aspect of spinal canal, incompletely imaged. RENETTA Wyman POS: BEL
--- NOTE | 2019-05-14 18:14 | MRI ---
MRI OF THE THORACIC SPINE WITH AND WITHOUT CONTRAST: 05/14/19 INDICATION: Concern for spinal infection. COMPARISON: Prior MR of the thoracic spine dated 03/26/19. CONTRAST: 20 mL of Multihance. TECHNIQUE: Multiplanar and multisequence MR images were obtained of the thoracic spine with and without IV contr ast. FINDINGS: Mild multilevel spondylosis of the thoracic spine is stable. Bone marrow signal intensity and disc si gnal intensity appears within normal limits. Small bone hemangioma at T7 is stable. Small amount of d isc bulge and facet hypertrophy at T11-T12 causing some mild central canal narrowing is stable. There is also moderate left and right neural foraminal narrowing due to facet joint hypertrophy and degene rative change which is likely stable to the prior exam. The visualized paravertebral soft tissues are normal appearing. No definite region of abnormal enhancement is demonstrated. A paraspinal phlegmon is noted. IMPRESSION: No evidence of discitis or osteomyelitis or definite epidural abscess. Stable mild central canal narrowing at T11-T12 with moderate bilateral neural foraminal narrowing. POS: BH
== END 2019-05-14 12:00 | disposition home or self-care (01) ==
LOC: SCSMRI 11:59
PROVIDERS: ATTEND Internal Medicine Infectious Disease
DX: M47.24 Other spondylosis with radiculopathy, thoracic region (principal); M54.16 Radiculopathy, lumbar region; M54.5 Low back pain; M51.17 Intervertebral disc disorders with radiculopathy, lumbosacral region; M47.27 Other spondylosis with radiculopathy, lumbosacral region; M48.061 Spinal stenosis, lumbar region without neurogenic claudication
CPT/HCPCS: 72157; 72158; 80053; 81001; 84165; 85025; 86140; A9577

== ENCOUNTER 2019-06-03 12:44 | Emergency (ER) | payer MEDICARE ==
[2019-06-03 13:11] LABS: Bilirubin Negative (Negative); Blood, Urine Trace (Negative); Glucose, Urine (Dipstick) Negative (Negative); Leukocyte Negative (Negative); Nitrite Negative (Negative); Protein, Urine (Dipstick) Negative (Neg-Trace); Urobilinogen 0.2 mg/dL (Less than 2)
[2019-06-03 13:12] LABS: Clarity Clear (Clear)
[2019-06-03 13:15] LABS: RBC/HPF 0-3 HPF (0-3); WBC/HPF 0-3 HPF (0-3)
[2019-06-03 13:17] LABS: Bacteria/HPF 1+ HPF (None Seen)
== END 2019-06-03 13:41 | disposition home or self-care (01) ==
LOC: ERS 12:44
DX: R30.0 Dysuria (principal); E11.9 Type 2 diabetes mellitus without complications; I10 Essential (primary) hypertension; F41.9 Anxiety disorder, unspecified; Z87.891 Personal history of nicotine dependence; Z87.442 Personal history of urinary calculi; Z79.899 Other long term (current) drug therapy; Z79.1 Long term (current) use of non-steroidal anti-inflammatories (NSAID); Z79.51 Long term (current) use of inhaled steroids
CPT/HCPCS: 81003; 81015; 99283

== ENCOUNTER 2019-11-29 05:11 | Emergency (ER) | payer MEDICARE ==
[2019-11-29] MEDS ORDERED: methylPREDNISolone Sod Succ/PF 125 MG/2 ML VIAL ONE (05:27)
[2019-11-29 05:59] LABS: Bilirubin Negative (Negative); Blood, Urine Negative (Negative); Clarity Clear (Clear); Glucose, Urine (Dipstick) Normal (Negative); Leukocyte Negative Leu/uL (Negative); Nitrite Negative (Negative); Protein, Urine (Dipstick) Negative (Neg-Trace); Urobilinogen Normal mg/dL (Less than 2)
[2019-11-29 06:02] LABS: #Basophils 0.1 thou/uL (0.0-0.2); #Eosinphils 0.1 thou/uL (0.0-0.7); #Lymphocytes 1.9 thou/uL (1.20-3.40); #Monocytes 0.5 thou/uL (0.11-0.59); #Neutrophils 10.4 thou/uL (1.40-6.50); %Basophils 0.5 % (0.0-1.0); %Eosinophils 0.9 % (0.0-10.0); %Lymphocytes 14.7 % (21.0-51.0); %Monocytes 3.6 % (0.0-10.0); %Neutrophils 80.3 % (42.0-75.0); Hemoglobin 12.6 g/dL (12.0-16.0); Mean Corpuscular Hemoglobin 27.5 pg (27.0-31.0); Mean Corpuscular Volume 86.1 fL (78.0-98.0); Mean Platelet Volume 11.4 fL (7.4-10.4); Platelet Count 221 thou/uL (130-400); RBC Distribution Width 14.7 % (11.5-14.5); Red Blood Cell (RBC) Count 4.58 mill/uL (4.20-5.40)
[2019-11-29 06:26] LABS: ALT (SGPT) 9 U/L (8-55); AST (SGOT) 11 U/L (5-34); Albumin 4.2 g/dL (3.4-4.8); Alkaline Phosphatase 124 U/L (40-110); Anion Gap 14 mmol/L (10-20); BUN (Urea Nitrogen) 19 mg/dL (9.8-20.1); Bilirubin, Total 0.4 mg/dL (0.2-1.2); Calc. Creatinine Clearance 0 mL/min (70-130); Calcium 9.7 mg/dL (7.8-10.44); Carbon Dioxide 19 mmol/L (23-31); Chloride 108 mmol/L (98-107); Estimated GFR-MDRD 48; Glucose 199 mg/dL (83-110); Potassium 4.7 mmol/L (3.5-5.1); Protein, Total 7.2 g/dL (6.0-8.3); Sodium 136 mmol/L (136-145)
--- NOTE | 2019-11-29 08:09 | RAD ---
Exam: Chest one view HISTORY:Chest pain. Comparison: 04/05/2019 FINDINGS: Cardiac silhouette: Normal Aorta: Unremarkable Pulmonary vessels: Normal Costophrenic angles: Clear LUNGS: No masses or consolidation. Pneumothorax: None Osseous abnormalities: None IMPRESSION: No acute cardiopulmonary process.
== END 2019-11-29 07:16 | disposition home or self-care (01) ==
LOC: ERS 05:11
DX: R09.1 Pleurisy (principal); E11.9 Type 2 diabetes mellitus without complications; I10 Essential (primary) hypertension; F41.9 Anxiety disorder, unspecified; Z87.891 Personal history of nicotine dependence; Z79.899 Other long term (current) drug therapy
CPT/HCPCS: 71045; 80053; 81003; 84484; 85025; 93005; 96361; 96374; J2930

== ENCOUNTER 2020-03-18 07:54 | Emergency (ER) | payer MEDICARE ==
[2020-03-18] MEDS ORDERED: Ondansetron PF 4 MG/2 ML Vial ONE (08:44)
[2020-03-18] MEDS ORDERED: Morphine 4 MG/ML VIAL ONE (08:59)
[2020-03-18 09:18] LABS: Hemoglobin 12.6 g/dL (12.0-16.0); Mean Corpuscular HGB CONC 30.9 g/dL (32.0-36.0); Mean Corpuscular Hemoglobin 27.2 pg (27.0-31.0); Mean Platelet Volume 10.8 fL (7.4-10.4); Platelet Count 203 thou/uL (130-400); RBC Distribution Width 15.5 % (11.5-14.5); Red Blood Cell (RBC) Count 4.64 mill/uL (4.20-5.40); White Blood Cell (WBC) Count 18.1 thou/uL (4.8-10.8)
[2020-03-18 09:27] LABS: ALT (SGPT) 14 U/L (8-55); AST (SGOT) 16 U/L (5-34); Albumin 3.9 g/dL (3.4-4.8); Alkaline Phosphatase 121 U/L (40-110); Anion Gap 14 mmol/L (10-20); BUN (Urea Nitrogen) 14 mg/dL (9.8-20.1); Bilirubin, Total 0.4 mg/dL (0.2-1.2); Calc. Creatinine Clearance 0 mL/min (70-130); Calcium 9.3 mg/dL (7.8-10.44); Carbon Dioxide 27 mmol/L (23-31); Chloride 101 mmol/L (98-107); Estimated GFR-MDRD 61; Glucose 202 mg/dL (83-110); Lipase 32 U/L (8-78); Potassium 3.7 mmol/L (3.5-5.1); Protein, Total 6.9 g/dL (6.0-8.3); Sodium 138 mmol/L (136-145)
[2020-03-18 09:41] LABS: #Eosinphils 0.4 thou/uL (0.0-0.7); #Lymphocytes 3.6 thou/uL (1.20-3.40); #Monocytes 1.3 thou/uL (0.11-0.59); #Neutrophils 12.9 thou/uL (1.40-6.50); %Basophils 0.2 % (0.0-1.0); %Lymphocytes 19.7 % (21.0-51.0); %Monocytes 6.9 % (0.0-10.0); %Neutrophils 71.1 % (42.0-75.0); MDiff Complete? YES
[2020-03-18 09:42] LABS: Band 1 % (5-11); Eosinophils 3 % (0-10); Lymphocytes 19 % (21-51); Monocytes 11 % (0-10); Neutrophil 66 % (42-75); Platelet Morphology Comment Appears Adequate; Polychromasia SLIGHT = 2-3 cells (100X) (0-2/hpf)
--- NOTE | 2020-03-18 09:50 | CT ---
CT Abdomen Pelvis W Con HISTORY: Left flank pain COMPARISON: 03/26/2019 FINDINGS: The lung bases are clear. The liver demonstrates decreased attenuation compared to the spleen consist ent with diffuse fatty infiltration. No focal mass or abnormal biliary ductal dilatation is seen. The patient is post cholecystectomy. The spleen, pancreas, adrenal glands are normal. Small cysts in the kidneys again seen. No free air, free fluid or lymphadenopathy seen in the abdomen or pelvis. A posterior gastric abdomen is again seen. The small bowel loops are not abnormally dilated. There is sigmoid diverticulosis without evidence of diverticulitis. No hydroureteronephrosis is noted in either side. There is no evidence of aneurysmal dilatation of the abdominal aorta. There are degenerative changes in the spine. The patient is post hysterectomy.. IMPRESSION: 1. No acute process 2. Fatty liver 3. Gastric diverticulum 4. Renal cysts 5. Sigmoid diverticulosis
[2020-03-18 10:01] LABS: Bilirubin Negative (Negative); Blood, Urine Negative (Negative); Clarity Clear (Clear); Glucose, Urine (Dipstick) Normal (Negative); Ketone, Urine Negative (Negative); Leukocyte Negative Leu/uL (Negative); Nitrite Negative (Negative); Protein, Urine (Dipstick) Negative (Neg-Trace); Specific Gravity, Urine 1.013 (1.002-1.036); Urobilinogen Normal mg/dL (Less than 2); pH, Urine 5.5 (5.0-9.0)
== END 2020-03-18 11:35 | disposition home or self-care (01) ==
LOC: ERS 07:54
DX: K57.30 Diverticulosis of large intestine without perforation or abscess without bleeding (principal); E11.9 Type 2 diabetes mellitus without complications; I10 Essential (primary) hypertension; F41.9 Anxiety disorder, unspecified; Z87.442 Personal history of urinary calculi; Z87.891 Personal history of nicotine dependence
CPT/HCPCS: 74177; 80053; 81003; 83690; 85025; 96361; 96374; 96375; J2270; J2405

== ENCOUNTER 2020-07-15 12:39 | Observation (INO) | payer MEDICARE ==
[2020-07-15] MEDS ORDERED: Nitroglycerin 2% Ointment 1 INCH/1 GM Packet ONE (13:03)
[2020-07-15 13:22] LABS: #Basophils 0.1 thou/uL (0.0-0.2); #Eosinphils 0.4 thou/uL (0.0-0.7); #Lymphocytes 3.1 thou/uL (1.20-3.40); #Monocytes 1.1 thou/uL (0.11-0.59); #Neutrophils 10.5 thou/uL (1.40-6.50); %Basophils 0.5 % (0.0-1.0); %Eosinophils 2.4 % (0.0-10.0); %Lymphocytes 20.3 % (21.0-51.0); %Monocytes 7.1 % (0.0-10.0); %Neutrophils 69.7 % (42.0-75.0); Hemoglobin 13.1 g/dL (12.0-16.0); Mean Corpuscular HGB CONC 33.5 g/dL (32.0-36.0); Mean Corpuscular Hemoglobin 28.7 pg (27.0-31.0); Mean Corpuscular Volume 85.6 fL (78.0-98.0); Mean Platelet Volume 10.6 fL (7.4-10.4); Platelet Count 202 thou/uL (130-400); RBC Distribution Width 15.1 % (11.5-14.5); Red Blood Cell (RBC) Count 4.55 mill/uL (4.20-5.40); White Blood Cell (WBC) Count 15.1 thou/uL (4.8-10.8)
[2020-07-15] MEDS ORDERED: Iopamidol-370 76% 500 ML 1 ML ONE (13:36)
[2020-07-15 13:47] LABS: ALT (SGPT) 14 U/L (8-55); AST (SGOT) 15 U/L (5-34); Albumin 4.2 g/dL (3.4-4.8); Alkaline Phosphatase 139 U/L (40-110); Anion Gap 17 mmol/L (10-20); BUN (Urea Nitrogen) 27 mg/dL (9.8-20.1); Bilirubin, Total 0.4 mg/dL (0.2-1.2); Calc. Creatinine Clearance 0 mL/min (70-130); Calcium 9.7 mg/dL (7.8-10.44); Carbon Dioxide 24 mmol/L (23-31); Chloride 101 mmol/L (98-107); Estimated GFR-MDRD 32; Glucose 161 mg/dL (83-110); Potassium 3.9 mmol/L (3.5-5.1); Protein, Total 7.2 g/dL (6.0-8.3); Sodium 138 mmol/L (136-145)
--- NOTE | 2020-07-15 14:28 | RAD ---
PORTABLE CHEST: 07/15/20 INDICATIONS: Chest pain. COMPARISON: 11/29/19. Mild cardiomegaly is stable. No focal infiltrate or significant effusion. No significant vascular eng orgement. No interval change apparent. IMPRESSION: No acute process. POS: AGW
--- NOTE | 2020-07-15 15:15 | CT ---
CT angiogram chest: 07/15/2020 COMPARISON: 04/05/2019 HISTORY: Chest pain with shortness of breath TECHNIQUE: Axial CT imaging at 2.5 mm intervals from the thoracic inlet through the upper abdomen wit h IV contrast using CT angiogram protocol. Coronal and sagittal 3-D reformatted imaging obtained. FINDINGS: No axillary, hilar, or mediastinal lymphadenopathy. The visualized upper abdomen demonstrate no acute findings. Partially imaged kidneys demonstrate a lo bulated peripheral contour. There may be a small isodense lesion versus lobulation within the lateral aspect midpole right kidney for which renal ultrasound is suggested. There is no significant pleural, pericardial, or mediastinal fluid. No pulmonary arterial filling defect is evident to suggest the presence of acute pulmonary arterial e mbolism. There is mild increased linear density within the posterior medial aspect of the left upper lobe, bes t seen on axial image 35, suggesting scar and/or volume loss, not significantly changed when compared to the prior examination. No worrisome pulmonary parenchymal mass lesion or nodule is seen on either side. No significant pulmo nary parenchymal opacity is noted. Review of the osseous structures demonstrates multilevel degenerative change within the imaged spine with no worrisome lytic or blastic bone lesions. IMPRESSION: 1. No evidence for pulmonary arterial embolism 2. Lobulated nature of the kidneys with a possible isodense lesion within the lateral aspect of the m idpole right kidney. Recommend nonemergent follow-up renal ultrasound.
[2020-07-15 15:24] LABS: Bilirubin Negative (Negative); Blood, Urine Negative (Negative); Glucose, Urine (Dipstick) Negative (Negative); Ketone, Urine Negative (Negative); Leukocyte Negative (Negative); Nitrite Negative (Negative); Protein, Urine (Dipstick) Negative (Neg-Trace); Urobilinogen 0.2 mg/dL (Less than 2); pH, Urine 5.5 (5.0-9.0)
[2020-07-15 15:29] LABS: Clarity Clear (Clear)
[2020-07-15] MEDS ORDERED: Ondansetron PF 4 MG/2 ML Vial IVP PRN (16:22)
[2020-07-15] MEDS ORDERED: Senokot S 8.6-50 MG TAB PO PRN (16:22)
[2020-07-15] MEDS ORDERED: Ondansetron ODT 4 MG TAB PO PRN (16:22)
[2020-07-15] MEDS ORDERED: Acetaminophen 325 MG TAB PO PRN (16:22)
[2020-07-15] MEDS ORDERED: Nitroglycerin 0.4 MG TAB (25 Tab Bottle) SL PRN (16:22)
--- NOTE | 2020-07-15 16:35 | PDOC.FPRHP ---
- History of Present Illness Chief Complaint: chest pain History of Present Illness: Pt is a 70 yo F with a PMH of HTN, DM, and sarcoidosis who presents to the ED with chief complaint of chest pain. It was sharp, radiates bilaterally & associated with n/v x4. No hematemesis. SL nitro helped but better with movement. She has no cardiac history nor has had a stress test in the past. She was given 324mg ASA and zofran in the ER. Trop neg x1, EKG unremarkable. Chest pain ED Course: Nitro in the ED ASA and Zofran in route to the ED - Allergies/Adverse Reactions Allergies Allergy/AdvReac Type Severity Reaction Status Date / Time ciprofloxacin [From Cipro] Allergy Verified 11/30/19 18:29 ciprofloxacin HCl Allergy Verified 11/30/19 18:29 [From Cipro] codeine Allergy Verified 11/30/19 18:29 nitrofurantoin Allergy Verified 11/30/19 18:29 [From Macrobid] nitrofurantoin Allergy Verified 11/30/19 18:29 macrocrystalline [From Macrobid] sulfamethoxazole Allergy Verified 11/30/19 18:29 [From Bactrim] trimethoprim [From Bactrim] Allergy Verified 11/30/19 18:29 - Home Medications Medication Instructions Recorded Confirmed Type Lisinopril 5 mg PO DAILY 06/08/13 04/27/19 History sitaGLIPtin Phosphate [Januvia] 25 mg PO DAILY 09/27/14 04/27/19 History Albuterol Sulfate [Proair 2 puff INH Q4HR PRN 03/02/18 04/27/19 History Respiclick] Dicyclomine [Bentyl] 20 mg PO QID PRN 03/02/18 04/27/19 History HYDROcodone/Acetaminophen [Frohna 1 each PO Q8HR PRN 03/02/18 04/27/19 History 10-325 Tablet] hydrOXYzine [Atarax] 25 mg PO TID PRN 03/02/18 04/27/19 History Benzonatate 100 mg PO TID PRN 03/25/19 04/27/19 History Estradiol [Estrace 0.01% Vaginal 1 gm VAG .3X'S/WEEK 03/25/19 04/27/19 History Cream] Fluticasone Furoate [Arnuity 1 inh IH DAILY 03/25/19 04/27/19 History Ellipta] Glimepiride 2 mg PO QAM-WM 03/25/19 04/27/19 History Hydrocortisone [Hydrocortisone 1 applic TOP BID PRN 03/25/19 04/27/19 History 2.5% Lotion] Ipratropium/Albuterol Sulfate 3 ml NEB QID PRN 03/25/19 04/27/19 History Methocarbamol 750 mg PO QID PRN 03/25/19 04/27/19 History Pregabalin [Lyrica] 100 mg PO TID 03/25/19 04/27/19 History Calcium Carbonate + Vit D 1 tab PO BID-WM tab 03/28/19 04/27/19 Rx [Caltrate 600 + Vit D] Polyethylene Glycol 3350 [Miralax] 17 gm PO DAILY #30 pk 03/28/19 04/27/19 Rx Pantoprazole [Protonix] 40 mg PO DAILY #30 tab 03/29/19 04/27/19 Rx Amitriptyline HCl [Elavil] 10 mg PO HS 04/27/19 04/27/19 History Cefdinir [Omnicef] 300 mg PO BID #14 cap 04/30/19 Rx metroNIDAZOLE [Flagyl] 500 mg PO TID #21 tab 04/30/19 Rx - History PMHx: IDDM2, HTN, sarcoidosis PSHx: cholecystectomy, bowel obstruction, tonsillectomy, hysterectomy, oopherectomy FHx: mom-DM father- cancer and heart attack when in 70s Social: . Denies drugs former 4 pack year history-remote - Review of Systems General: reports: weight/appetite/sleep changes, night sweats. denies: fever/chills Eyes: denies: eye pain, vision changes ENT: reports: nasal congestion. denies: rhinorrhea Respiratory: reports: cough, congestion, shortness of breath Cardiovascular: reports: chest pain, edema Gastrointestinal: reports: nausea, vomiting, diarrhea Genitourinary: denies: incontinence Skin: denies: rashes, lesions, jaundice, itching Musculoskeletal: denies: pain, tenderness, stiffness Neurological: reports: weakness. denies: seizure Psychological: reports: anxiety - Vital signs BP: 104/60 HR: 102 RR: 18 Tmax: 98.5 Pox: 94% on RA Wt: 89.8kg - Physical Exam Constitutional: awake, alert and oriented, well developed -Constitutional: anxious HEENT: normocephalic and atraumatic, PERRLA, EOMI, conjunctiva clear, no scleral icterus -HEENT: dry mucosal membranes Neck: supple, FROM, trachea midline -Chest: left chest tender to palpation Heart: RRR, normal S1/S2, no murmurs/rubs/gallops, pulses present Lungs: CTAB, no respiratory distress, good air movement Abdomen: soft, bowel sounds present, no masses/distention Musculoskeletal: normal structure, normal tone, ROM grossly normal -Musculoskeletal: trace edema bilaterally Neurological: no focal deficit, CN II-XII intact Skin: no rash/lesions -Skin: dec skin turgor Heme/Lymphatic: no unusual bruising or bleeding, no purpura Psychiatric: good judgment and insight, intact recent and remote memory FMR H&P: Results - Labs Result Diagrams: 07/15/20 13:06 07/15/20 13:06 Lab results: WBC 15.1 thou/uL (4.8-10.8) H 07/15/20 13:06 Hgb 13.1 g/dL (12.0-16.0) 07/15/20 13:06 Hct 39.0 % (36.0-47.0) 07/15/20 13:06 MCV 85.6 fL (78.0-98.0) 07/15/20 13:06 Plt Count 202 thou/uL (130-400) 07/15/20 13:06 Neutrophils % 69.7 % (42.0-75.0) 07/15/20 13:06 Sodium 138 mmol/L (136-145) 07/15/20 13:06 Potassium 3.9 mmol/L (3.5-5.1) 07/15/20 13:06 Chloride 101 mmol/L (98-107) 07/15/20 13:06 Carbon Dioxide 24 mmol/L (23-31) 07/15/20 13:06 BUN 27 mg/dL (9.8-20.1) H 07/15/20 13:06 Creatinine 1.88 mg/dL (0.6-1.1) H 07/15/20 13:06 Glucose 161 mg/dL (83-110) H 07/15/20 13:06 Calcium 9.7 mg/dL (7.8-10.44) 07/15/20 13:06 Total Bilirubin 0.4 mg/dL (0.2-1.2) 07/15/20 13:06 AST 15 U/L (5-34) 07/15/20 13:06 ALT 14 U/L (8-55) 07/15/20 13:06 Alkaline Phosphatase 139 U/L (40-110) H 07/15/20 13:06 B-Natriuretic Peptide 20.5 pg/mL (0-100) 07/15/20 13:06 Serum Total Protein 7.2 g/dL (6.0-8.3) 07/15/20 13:06 Albumin 4.2 g/dL (3.4-4.8) 07/15/20 13:06 Urine Ketones Negative mg/dL (Negative) 07/15/20 15:09 Urine Blood Negative (Negative) 07/15/20 15:09 Urine Nitrite Negative (Negative) 07/15/20 15:09 Ur Leukocyte Esterase Negative (Negative) 07/15/20 15:09 - EKG Interpretation EKG: NSR, no acute ST/T wave changes FMR H&P: A/P - Plan #Chest pain, ACS rule out -HEART score of 5 -NMST on Sunday since COVID pending -s/p ASA, continue daily ASA -FLP and a1c to risk stratify -tele monitoring -Nitro & morphine prn -TTE #NANCY on CKD -Cr on admission 1.88 -baseline seems to be 1.05 -LIkely prerenal from fluid losses. 1L bolus now, mIVF, BMP in AM #COVID PUI -some congestion & cough, vague sxs -Covid pending -Respiratory status stable #elevated WBC -likely 2/2 stress #DM - aware, continue home meds -Check a1c #HTN -aware, continue home meds #sarcoidosis -stable Diet: NPO at midnight Fluids: LR 150 DVT Ppx: heparin TID Dispo: anticipate tele obs, anticipated LOS <48 hours FMR H&P: Upper Level - Plan Date/Time: 07/15/20 1633 I, [], have evaluated this patient and agree with findings/plan as outlined by general internal medicine doctor resident. Pertinent changes/additions are listed here. Addendum - Attending - Attending Attestation Date/Time: 07/15/202049 I personally evaluated the patient and discussed the management with Dr. Partida. I agree with the History, Examination, Assessment and Plan documented above with any addition or exceptions noted below.
[2020-07-15] MEDS ORDERED: Dextrose 5% in Water 1,000 ML IV PRN (16:49)
[2020-07-15] MEDS ORDERED: Dextrose 50% Abboject 50 ML SYRINGE SLOW IVP PRN (16:49)
[2020-07-15] MEDS ORDERED: HumaLOG 300 UNITS/3 ML VIAL SC PRN ×2 (16:49)
[2020-07-15 17:15] LABS: Troponin I 0.021 ng/mL (< 0.028)
[2020-07-15] MEDS ORDERED: Lactated Ringer's 1,000 ML IV SCH (17:45)
[2020-07-15 19:40] LABS: Troponin I Less than 0.010 ng/mL (< 0.028)
[2020-07-15] MEDS ORDERED: hydrOXYzine 25 MG TAB ONE (20:17)
[2020-07-15] MEDS: Lactated Ringer's 1,000 ML IV SCH (21:53)
[2020-07-15 23:18] LABS: SARS-CoV-2 NAA Rapid Test Not Detected (NotDetected)
[2020-07-15] MEDS: Heparin 5,000 UNITS/ML VIAL SC SCH (23:34)
[2020-07-16] MEDS: Lactated Ringer's 1,000 ML IV SCH ×3 (00:34→13:03)
[2020-07-16 02:44] VITALS: BMI 37.3
[2020-07-16 05:34] LABS: ALT (SGPT) 14 U/L (8-55); AST (SGOT) 19 U/L (5-34); Albumin 3.9 g/dL (3.4-4.8); Alkaline Phosphatase 135 U/L (40-110); Anion Gap 15 mmol/L (10-20); BUN (Urea Nitrogen) 20 mg/dL (9.8-20.1); Bilirubin, Total 0.4 mg/dL (0.2-1.2); Calc. Creatinine Clearance 60 mL/min (70-130); Calcium 9.6 mg/dL (7.8-10.44); Carbon Dioxide 24 mmol/L (23-31); Cardiac Risk 2.7 (Less than 4.5); Chloride 102 mmol/L (98-107); Cholesterol 136 mg/dl (< 200 Desired); Estimated GFR-MDRD 46; Globulin 3.4 g/dL (2.4-3.5); Glucose 134 mg/dL (83-110); HDL Cholesterol 50 mg/dL (>60 Neg Risk); LDL Cholesterol, Calculated 46 mg/dL; Potassium 3.9 mmol/L (3.5-5.1); Protein, Total 7.3 g/dL (6.0-8.3); Sodium 137 mmol/L (136-145); Triglycerides 199 mg/dL (Less than 150)
[2020-07-16 06:28] LABS: Hemoglobin 12.8 g/dL (12.0-16.0); Mean Corpuscular HGB CONC 32.5 g/dL (32.0-36.0); Mean Corpuscular Hemoglobin 27.7 pg (27.0-31.0); Mean Corpuscular Volume 85.3 fL (78.0-98.0); Mean Platelet Volume 11.3 fL (7.4-10.4); Platelet Count 180 thou/uL (130-400); RBC Distribution Width 15.3 % (11.5-14.5); Red Blood Cell (RBC) Count 4.62 mill/uL (4.20-5.40); White Blood Cell (WBC) Count 13.1 thou/uL (4.8-10.8)
[2020-07-16 06:55] LABS: #Basophils 0.1 thou/uL (0.0-0.2); #Eosinphils 0.4 thou/uL (0.0-0.7); #Lymphocytes 3.1 thou/uL (1.20-3.40); #Neutrophils 8.5 thou/uL (1.40-6.50); %Basophils 0.9 % (0.0-1.0); %Eosinophils 3.2 % (0.0-10.0); %Lymphocytes 23.5 % (21.0-51.0); %Monocytes 7.3 % (0.0-10.0); %Neutrophils 65.1 % (42.0-75.0); MDiff Complete? YES; Platelet Morphology Comment Appears Adequate; Polychromasia SLIGHT = 2-3 cells (100X) (0-2/hpf)
[2020-07-16 08:20] LABS: Amphetamine Not Detected (NotDetected); Barbiturates Screen Not Detected (NotDetected); Benzodiazepine Screen Not Detected (NotDetected); Cocaine Metabolite Screen Not Detected (NotDetected); Medtox Control Line Valid? VALID (VALID); Medtox Reader # READER 4; Methadone Not Detected (NotDetected); Methamphetamine Not Detected (NotDetected); Opiate Screen Not Detected (NotDetected); Oxycodone Screen Not Detected (NotDetected); Phencyclidine (PCP) Not Detected (NotDetected); THC/Cannabinoid Screen Not Detected (NotDetected); Tricyclic Screen Detected (NotDetected)
[2020-07-16] MEDS: Heparin 5,000 UNITS/ML VIAL SC SCH ×2 (08:31→16:17)
[2020-07-16] MEDS ORDERED: Enoxaparin Sodium 30 MG/0.3 ML SYRINGE SC SCH (09:00)
[2020-07-16] MEDS ORDERED: hydrOXYzine 25 MG TAB PO PRN (09:25)
--- NOTE | 2020-07-16 09:53 | PDOC.FM ---
- Subjective Subjective: Patient reports pleuritic chest pain this AM over L chest. She also reports increased anxiety 2/2 being in the hospital. She reports a sensation of burning pain that goes from her head to her toes. She also reports R sided back pain in lumbar region that is non radiating. - Objective Vital Signs & Weight: Vital Signs (12 hours) Temp Pulse Resp BP Pulse Ox 07/16/20 05:36 96 07/16/20 05:16 98.4 F 92 20 115/70 96 07/15/20 23:55 98.2 F 86 18 127/72 96 Weight Weight 101.65 kg I&O: 07/15/20 07/16/20 07/17/20 06:59 06:59 06:59 Intake Total 120 Balance 120 Result Diagrams: 07/16/20 04:38 07/16/20 04:38 Phys Exam - Physical Examination Constitutional: NAD Respiratory: no wheezing, no rales, no rhonchi Cardiovascular: RRR, no significant murmur, no rub Gastrointestinal: soft, non-tender, no distention Neurological: non-focal, moves all 4 limbs Dx/Plan - Plan Plan: #Chest pain, ACS rule out - HEART score of 5 - NMST pending - s/p ASA, continue daily ASA - tele monitoring - Nitro & morphine prn - Will need statin based on ASCVD risk #NANCY on CKD -Cr on admission 1.88 -baseline seems to be 1.05 -LIkely prerenal from fluid losses. 1L bolus now, mIVF - BMP improving #elevated WBC -likely 2/2 stress, improving #DM - aware, continue home meds - A1c 8.0 #HTN -aware, continue home meds #sarcoidosis -stable #COVID Negative -some congestion & cough, vague sxs Needs Med rec Diet: NPO at midnight Fluids: LR 150 DVT Ppx: heparin TID Dispo: anticipate tele obs, anticipated LOS <48 hours Addendum - Attending - Attending Attestation Date/Time: 07/16/20 4026 I personally evaluated the patient and discussed the management with Dr. Chiu I agree with the History, Examination, Assessment and Plan documented above with any addition or exceptions noted below - Patient denies any complaints except some hip pain. Afebrile VSS. A/P: 1) Chest pain - trop negative; stress test negative. D/c home today. 2) NANCY- resolved.
[2020-07-16] MEDS ORDERED: Furosemide 20 MG TAB PO PRN (12:07)
[2020-07-16] MEDS ORDERED: Potassium Chloride 20 MEQ TAB PO PRN (12:44)
[2020-07-16] MEDS ORDERED: HYDROCORTISONE 2.5% TOP PRN (12:48)
[2020-07-16] MEDS ORDERED: ADENOSINE 60 MG/20 ML VIAL ONE (13:11)
--- NOTE | 2020-07-16 13:17 | NM ---
EXAM: Nuclear medicine stress only cardiac perfusion examination with ejection fraction HISTORY: Chest pain TECHNIQUE: Stress images: 27.8 mCi of technetium 9M sestamibi; COMPARISON: None FINDINGS: Tomographic images: No myocardial perfusion defects. Gated images: Normal wall motion and thickening. Estimated LVEF of 79%. End-diastolic volume: 54 cc. End-systolic volume: 11 cc. IMPRESSION: Normal stress only myocardial perfusion evaluation.
[2020-07-16] MEDS ORDERED: HYDROcodone/Acetaminophen 10/325 mg Tablet PO SCH (14:45)
[2020-07-16] MEDS ORDERED: Ketorolac Tromethamine 30 MG/ML VIAL IVP SCH (14:45)
[2020-07-16] MEDS ORDERED: Baclofen 10 MG TAB PO SCH (15:00)
[2020-07-16] MEDS ORDERED: Pregabalin 50 MG CAP PO SCH (15:00)
[2020-07-16] MEDS ORDERED: Cholestyramine/Aspartame 4 gm Packet PO SCH (15:00)
[2020-07-16 17:24] VITALS: BP 160/72; TEMP 97.9
[2020-07-16] MEDS ORDERED: Mometasone Furoate 120 PUFF 220 MCG INH SCH (18:30)
[2020-07-16] MEDS ORDERED: Amitriptyline HCl 100 MG TAB PO SCH (21:00)
[2020-07-16] MEDS ORDERED: AMOXicillin 250 MG CAP PO SCH (22:00)
[2020-07-17] MEDS ORDERED: predniSONE 5 MG TAB PO SCH (09:00)
[2020-07-17] MEDS ORDERED: Mesalamine DR 400 mg Capsule PO SCH (09:00)
[2020-07-17] MEDS ORDERED: Hydrochlorothiazide 25 MG TAB PO SCH (09:00)
[2020-07-17] MEDS ORDERED: Loratadine 10 MG TAB PO SCH (09:00)
[2020-07-17] MEDS ORDERED: Calcium Carbonate 600 MG + Vit D TAB PO SCH (09:00)
[2020-07-17] MEDS ORDERED: Losartan 25 MG TAB PO SCH (09:00)
--- NOTE | 2020-07-17 13:15 | EKG ---
Test Reason : CHEST PAIN Blood Pressure : / mmHG Vent. Rate : 100 BPM Atrial Rate : 100 BPM P-R Int : 136 ms QRS Dur : 084 ms QT Int : 352 ms P-R-T Axes : 019 -22 -03 degrees QTc Int : 454 ms Normal sinus rhythm Nonspecific T wave abnormality Abnormal ECG Confirmed by GIL MCNALLY DO ([id number]), film editor supervisor LISSETTE YING ([id number] on 07/17/2020 1:15:07 PM Referred By: Confirmed By:GIL MCNALLY DO
--- NOTE | 2020-07-19 07:39 | DIS ---
DATE OF ADMISSION: 07/15/2020 DATE OF DISCHARGE: 07/16/2020 RESIDENT: Eitan Chiu MD ATTENDING DOCTOR: Amber Vance MD DISCHARGE ATTENDING: Amber Vance MD CONSULTATION: None. PROCEDURES: Nuclear medicine stress test showed normal perfusion during stress. PRIMARY DIAGNOSIS: ACS rule out. SECONDARY DIAGNOSES: 1. Acute kidney injury on chronic kidney disease. 2. Leukocytosis. 3. Type 2 diabetes. 4. Hypertension. 5. Sarcoidosis. 6. COVID PUI/negative. DISCHARGE MEDICATIONS: 1. Atorvastatin 40 mg p.o. daily. 2. Amitriptyline 100 mg p.o. at bedtime. 3. Amoxicillin 500 mg p.o. q.8 hours. 4. Baclofen 10 mg p.o. t.i.d. 5. Calcium carbonate plus vitamin D 1500 mg/400 units one tab p.o. daily. 6. Cetirizine 10 mg p.o. daily. 7. Cholestyramine 2 g p.o. t.i.d. 8. Fluticasone furoate 200 mcg one puff daily. 9. Furosemide 20 mg p.o. p.r.n. 10. Hydrochlorothiazide 12.5 mg p.o. daily. 11. Ipratropium/albuterol 3 mL nebulizer four times a day. 12. Losartan 25 mg p.o. daily. 13. Mesalamine 1.2 g p.o. daily. 14. Pantoprazole 40 mg p.o. daily. 15. Potassium 20 mEq p.o. p.r.n. 16. Prednisone 5 mg p.o. daily. 17. Lyrica 100 mg p.o. t.i.d. 18. Glimepiride 2 mg p.o. t.i.d. 19. [place] 10/325 p.o. q.8 hours p.r.n. 20. Hydrocortisone cream one application topical b.i.d. p.r.n. 21. Atarax 25 mg p.o. t.i.d. 22. Methocarbamol 750 mg p.o. q.4 hours. 23. Januvia 25 mg p.o. daily. DISCONTINUED MEDICATIONS: Duplicate methocarbamol dosing for t.i.d., discontinued. HISTORY OF PRESENT ILLNESS/HOSPITAL COURSE: Patient is a 70-year-old female, past medical history of hypertension, diabetes, and sarcoidosis, who presented to the ED with chief complaint of chest pain. The pain was sharp and radiated bilaterally. The pain was improved with sublingual nitro. Patient was given aspirin and Zofran. Troponins were negative. EKG was unremarkable. Patient underwent stress test with results above. Patient's chest pain improved during the hospital stay. However, she reported pleuritic chest pain that worsened with deep breath. Patient was very anxious during the hospital stay and reported back pain, leg pain, and right shoulder pain. Home medications were restarted. Patient was started on atorvastatin 40 mg daily for patient's ASCVD risk. Continuation should be discussed with PCP. DISPOSITION: Stable. DISCHARGE INSTRUCTIONS: 1. Location: Home. 2. Diet: Heart-healthy, diabetic/consistent carb. 3. Activity: As tolerated. 4. Followup: Patient should follow up with her PCP in two weeks to discuss stress test and continuation of statin. Job ID: [id number]
== END 2020-07-16 18:35 | disposition home or self-care (01) ==
LOC: ERS 12:39 → ERHOLD 16:10 → 2NO 07-16 00:15
PROVIDERS: ADMIT Family Medicine; ATTEND Family Medicine
DX: R07.81 Pleurodynia (principal); I12.9 Hypertensive chronic kidney disease with stage 1 through stage 4 chronic kidney disease, or unspecified chronic kidney disease; E11.22 Type 2 diabetes mellitus with diabetic chronic kidney disease; N18.9 Chronic kidney disease, unspecified; N17.9 Acute kidney failure, unspecified; D86.9 Sarcoidosis, unspecified; Z87.891 Personal history of nicotine dependence; Z79.52 Long term (current) use of systemic steroids; Z79.84 Long term (current) use of oral hypoglycemic drugs; Z79.899 Other long term (current) drug therapy; Z88.1 Allergy status to other antibiotic agents; Z88.2 Allergy status to sulfonamides; Z88.5 Allergy status to narcotic agent; Z20.828 Contact with and (suspected) exposure to other viral communicable diseases
CPT/HCPCS: 71045; 71275; 78452; 80053; 80061; 80306; 81003; 82962; 83036; 83690; 83880; 84484 ×2; 85025; 85379; 93005; 93017; 94760; 96374; 97139 ×4; 99285; A9500; G0378 ×2; U0002; 36415; 36416; 84443; J0153; J1644; J1885; Q9967

== ENCOUNTER 2020-07-25 10:58 | Emergency (ER) | payer MEDICARE ==
[2020-07-25 11:58] LABS: Bacteria/HPF 1+ HPF (None Seen); Bilirubin Negative (Negative); Blood, Urine 2+ (Negative); Clarity Clear (Clear); Glucose, Urine (Dipstick) Normal (Negative); Ketone, Urine Negative (Negative); Leukocyte Negative Leu/uL (Negative); Nitrite Negative (Negative); Protein, Urine (Dipstick) Negative (Neg-Trace); Specific Gravity, Urine 1.006 (1.002-1.036); Squamous Epithelial 0-3 HPF (0-3); Urobilinogen Normal mg/dL (Less than 2); WBC/HPF 0-3 HPF (0-3)
--- NOTE | 2020-07-25 13:03 | RAD ---
Chest AP view INDICATION: Chest pressure COMPARISON: July 15, 2020 FINDINGS: Lungs: The lungs are clear Cardiac silhouette: The cardiomediastinal silhouette appears within normal limits. Pulmonary vasculature: Normal Pleural spaces: No pleural effusion or pneumothorax is demonstrated. Upper abdomen: No abnormality seen. Osseous structures: No acute osseous abnormality. Additional findings: None. IMPRESSION: No acute cardiopulmonary abnormality.
[2020-07-25 13:22] LABS: #Basophils 0.1 thou/uL (0.0-0.2); #Eosinphils 0.3 thou/uL (0.0-0.7); #Lymphocytes 3.3 thou/uL (1.20-3.40); #Monocytes 1.2 thou/uL (0.11-0.59); #Neutrophils 10.7 thou/uL (1.40-6.50); %Basophils 0.6 % (0.0-1.0); %Eosinophils 1.8 % (0.0-10.0); %Lymphocytes 21.4 % (21.0-51.0); %Monocytes 7.6 % (0.0-10.0); %Neutrophils 68.6 % (42.0-75.0); Hemoglobin 13.7 g/dL (12.0-16.0); Mean Corpuscular HGB CONC 32.1 g/dL (32.0-36.0); Mean Corpuscular Hemoglobin 27.6 pg (27.0-31.0); Mean Corpuscular Volume 85.9 fL (78.0-98.0); Mean Platelet Volume 10.7 fL (7.4-10.4); Platelet Count 205 thou/uL (130-400); Red Blood Cell (RBC) Count 4.98 mill/uL (4.20-5.40); White Blood Cell (WBC) Count 15.6 thou/uL (4.8-10.8)
[2020-07-25 13:33] LABS: ALT (SGPT) 11 U/L (8-55); AST (SGOT) 16 U/L (5-34); Albumin 4.4 g/dL (3.4-4.8); Alkaline Phosphatase 128 U/L (40-110); Anion Gap 15 mmol/L (10-20); BUN (Urea Nitrogen) 27 mg/dL (9.8-20.1); Bilirubin, Total 0.7 mg/dL (0.2-1.2); Calc. Creatinine Clearance 0 mL/min (70-130); Calcium 9.9 mg/dL (7.8-10.44); Carbon Dioxide 26 mmol/L (23-31); Chloride 101 mmol/L (98-107); Globulin 3.6 g/dL (2.4-3.5); Glucose 111 mg/dL (83-110); Potassium 4.5 mmol/L (3.5-5.1); Sodium 137 mmol/L (136-145)
[2020-07-25] MEDS ORDERED: Acetaminophen 500 MG TAB ONE (16:05)
[2020-07-25 16:14] LABS: Troponin I Less than 0.010 ng/mL (< 0.028)
--- NOTE | 2020-07-31 17:39 | EKG ---
Test Reason : Blood Pressure : / mmHG Vent. Rate : 097 BPM Atrial Rate : 097 BPM P-R Int : 138 ms QRS Dur : 084 ms QT Int : 352 ms P-R-T Axes : 034 092 056 degrees QTc Int : 447 ms Normal sinus rhythm Possible Right ventricular hypertrophy Abnormal ECG Confirmed by YO RODAS M.D. ([id number]), communications editor LISSETTE YING ([id number]) on 07/31/2020 5:39:23 PM Referred By: Confirmed By:YO RODAS M.D.
== END 2020-07-25 16:47 | disposition home or self-care (01) ==
LOC: ERS 10:58
DX: N39.0 Urinary tract infection, site not specified (principal); R53.1 Weakness; E11.9 Type 2 diabetes mellitus without complications; I10 Essential (primary) hypertension; F41.9 Anxiety disorder, unspecified; Z87.891 Personal history of nicotine dependence; Z79.899 Other long term (current) drug therapy
CPT/HCPCS: 36415; 71045; 80053; 81003; 81015; 83690; 83880; 84484; 85025; 87077; 87086; 87186; 93005

== ENCOUNTER 2020-09-30 09:32 | Emergency (ER) | payer MEDICARE ==
[2020-09-30] MEDS ORDERED: Albuterol 200 PUFF (6.7GM INHALER) ONE (10:21)
[2020-09-30] MEDS ORDERED: predniSONE 20 MG TAB ONE (10:22)
[2020-09-30 10:23] LABS: #Eosinphils 0.1 thou/uL (0.0-0.7); #Lymphocytes 3.5 thou/uL (1.20-3.40); #Monocytes 0.9 thou/uL (0.11-0.59); #Neutrophils 8.7 thou/uL (1.40-6.50); %Basophils 0.2 % (0.0-1.0); %Eosinophils 1.1 % (0.0-10.0); %Lymphocytes 26.2 % (21.0-51.0); %Monocytes 6.9 % (0.0-10.0); %Neutrophils 65.6 % (42.0-75.0); Hemoglobin 11.8 g/dL (12.0-16.0); Mean Corpuscular HGB CONC 32.2 g/dL (32.0-36.0); Mean Corpuscular Hemoglobin 26.7 pg (27.0-31.0); Mean Corpuscular Volume 82.9 fL (78.0-98.0); Mean Platelet Volume 9.9 fL (7.4-10.4); Platelet Count 248 thou/uL (130-400); RBC Distribution Width 16.2 % (11.5-14.5); Red Blood Cell (RBC) Count 4.43 mill/uL (4.20-5.40); White Blood Cell (WBC) Count 13.3 thou/uL (4.8-10.8)
[2020-09-30 10:33] LABS: ALT (SGPT) 11 U/L (8-55); AST (SGOT) 16 U/L (5-34); Albumin 3.7 g/dL (3.4-4.8); Alkaline Phosphatase 95 U/L (40-110); Anion Gap 13 mmol/L (10-20); BUN (Urea Nitrogen) 11 mg/dL (9.8-20.1); Bilirubin, Total 0.3 mg/dL (0.2-1.2); Calc. Creatinine Clearance 0 mL/min (70-130); Calcium 8.1 mg/dL (7.8-10.44); Carbon Dioxide 27 mmol/L (23-31); Chloride 105 mmol/L (98-107); Globulin 3.1 g/dL (2.4-3.5); Glucose 119 mg/dL (83-110); Potassium 3.3 mmol/L (3.5-5.1); Protein, Total 6.8 g/dL (6.0-8.3); Sodium 142 mmol/L (136-145)
--- NOTE | 2020-09-30 11:02 | CT ---
CTA Angio Chest W WO Con 09/30/2020 10:40 AM Indication: Chest pain and Covid exposure 7 days ago Technique: Multiple CTA images were obtained of the thorax with IV contrast. 3-D rendering: MIP manju nstructed images were created and reviewed. Comparison: Prior CT PE examination dated July 15, 2020 Findings: Pulmonary arteries: No central or segmental pulmonary embolus is evident. Heart and Aorta: There is mild vascular calcification involving the coronary and thoracic aorta. Mediastinum:There are a few mildly prominent paraesophageal and para-aortic lymph nodes that are larg arturo stable. The largest measures 1 cm. Lungs:There are areas of subsegmental volume loss involving both lower lobes Pleural space: There are tiny bilateral pleural effusions Upper Abdomen: No acute abnormality. Osseous Structures: No acute osseous abnormality. Soft tissues:No abnormality. Other findings:None. Impression: No central or segmental pulmonary embolus. Tiny bilateral pleural effusions with subsegmental volume loss involving both lower lobes. Stable mildly prominent paraesophageal and para-aortic lymph nodes of the lower mediastinum.
[2020-09-30 12:16] LABS: Troponin I Less than 0.010 ng/mL (< 0.028)
== END 2020-09-30 12:50 | disposition home or self-care (01) ==
LOC: ERS 09:32
DX: U07.1 COVID-19 (principal); E11.9 Type 2 diabetes mellitus without complications; I10 Essential (primary) hypertension; Z79.899 Other long term (current) drug therapy
CPT/HCPCS: 71275; 80053; 83880; 84484; 85025; 93005; J7512

== ENCOUNTER 2020-10-09 10:05 | Emergency (ER) | payer MEDICARE ==
[2020-10-09] MEDS ORDERED: Ibuprofen 200 MG TAB ONE (11:10)
== END 2020-10-09 12:36 | disposition home or self-care (01) ==
LOC: ERS 10:05
DX: S90.111A Contusion of right great toe without damage to nail, initial encounter (principal); E11.9 Type 2 diabetes mellitus without complications; I10 Essential (primary) hypertension; Z87.891 Personal history of nicotine dependence; W22.8XXA Striking against or struck by other objects, initial encounter